=== PATIENT | male | born 1960 | race Caucasian/White ===

== ENCOUNTER 2021-03-02 08:42 | Outpatient (CLI) | payer OTHER, SELFPAY | END 2021-03-02 08:43 | disposition home or self-care (01) | LOC: ANHAUDIO 08:43 | PROVIDERS: PCP Internal Medicine; Visit Provider Otolaryngology | DX: H65.02 Acute serous otitis media, left ear (principal); H90.71 Mixed conductive and sensorineural hearing loss, unilateral, right ear, with unrestricted hearing on the contralateral side | CPT/HCPCS: 92557; 92567 ==

== ENCOUNTER 2023-04-24 10:26 | Emergency (ER) | payer OTHER, SELFPAY ==
[2023-04-24 10:45] VITALS: BP 132/82; PULSE 70; RESP 16; TEMP 36.6; O2SAT 96
--- NOTE | 2023-04-24 11:19 | ED.WOUNDLAC ---
HPI - Wound/Laceration General Chief Complaint: Wound/Laceration Stated Complaint: Left Thumb Laceration Time Seen by Provider: 04/24/23 11:10 Source: patient and RN notes reviewed Mode of arrival: ambulatory Limitations: no limitations History of Present Illness HPI narrative: Patient presents today complaining of a laceration to his left thumb that was sustained 2 hours prior to arrival at home with a kitchen knife. He dropped his hand in tape to try to get it to stop bleeding. Currently rates his pain 2/10. He is not up-to-date on his tetanus vaccine. Related Data Home Medications Medication Instructions Recorded Confirmed L.acidoph, paracasei,B. lactis 10 cell PO 09/18/20 04/21/21 billion cell capsule (Digestive Advantage Advanced Probiotic) amitriptyline 10 mg tablet 10 mg PO QHS 09/18/20 04/24/23 cetirizine 10 mg capsule (Zyrtec) 10 mg PO DAILY 09/18/20 04/24/23 clonazepam 1 mg tablet 0.5 mg PO BID 09/18/20 04/24/23 lisinopril 20 mg tablet 20 mg PO DAILY 09/18/20 04/24/23 metoprolol succinate 50 mg 50 mg PO DAILY 09/18/20 04/24/23 tablet,extended release 24 hr (Toprol XL) mirtazapine 15 mg tablet (Remeron) 15 mg PO DAILY 09/18/20 04/24/23 pantoprazole 40 mg tablet,delayed 40 mg PO QACBREAK 04/24/23 04/24/23 release Allergies Allergy/AdvReac Type Severity Reaction Status Date / Time Cephalosporins Allergy Unknown difficulty Verified 04/24/23 10:40 breathing ciprofloxacin Allergy Unknown body aches Verified 04/24/23 10:40 Penicillins Allergy Unknown Rash Verified 04/24/23 10:40 levofloxacin [From Levaquin] AdvReac difficulty Verified 04/24/23 10:40 breathing, swelling Review of Systems Review of Systems: CONSTITUTIONAL: Denies body aches, fever, chills, or sweats. EYES: Denies visual changes, redness, or discharge. ENT: Denies rhinorrhea, congestion, sore throat, or otalgia. CARDIOVASCULAR: Denies chest pain, palpitations, or edema. RESPIRATORY: Denies cough or dyspnea. GASTROINTESTINAL: Denies abdominal pain, nausea, vomiting, or diarrhea. GENITOURINARY: Denies dysuria or hematuria. SKIN: + thumb laceration. MUSCULOSKELETAL: Denies back pain, joint pain, or myalgia. NEUROLOGIC: Denies headache, numbness, tingling, or weakness. PSYCH: Denies depression or anxiety. [facility] Past Medical History Medical History Depression GERD (gastroesophageal reflux disease) High blood pressure Prostate cancer Surgical History Surgical History H/O bilateral inguinal hernia repair H/O eye surgery H/O hemorrhoidectomy H/O prostatectomy History of dental surgery History of Terrie fundoplication History of tonsillectomy Family History Family History Father Hypertension Leukemia Grandparent Diabetes mellitus Heart disease Cerebrovascular accident Social History Social History Years smoked: 10 Smoking status: Never smoker Alcohol intake: current Alcohol use details: socially Living arrangements: alone Occupation/Education: retired 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 Please see nursing chart for further information. There is no relevant family history pertinent to the presenting complaint Exam Narrative: GENERAL: Well-appearing, well-nourished, and in no acute distress. HEAD: Normocephalic, atraumatic. EYES: EOMI. No redness or drainage. Conjunctivae normal. ENT: Mucous membranes pink and moist. NECK: Normal AROM. CHEST: No respiratory distress. EXTREMITIES: Left thumb: 2 cm linear laceration to the dorsum of the interphalangeal joint. Moderate a
[2023-04-24] MEDS: TETANUS,DIPHTHERIA,AC PERTUSSIS ADULT (0.5 ML) BOOSTRIX IM (11:29)
[2023-04-24] MEDS: LIDOCAINE HCL 1% LOCAL INJ 2 ML AMPUL 8 ML INFILTRATE (11:30)
== END 2023-04-24 12:08 | disposition home or self-care (01) ==
PROVIDERS: Emergency Provider Nurse Practitioner; PCP Internal Medicine
DX: S61.012A Laceration without foreign body of left thumb without damage to nail, initial encounter (principal); W26.0XXA Contact with knife, initial encounter; Z23 Encounter for immunization; K21.9 Gastro-esophageal reflux disease without esophagitis; I10 Essential (primary) hypertension; Z85.46 Personal history of malignant neoplasm of prostate; Z90.79 Acquired absence of other genital organ(s); F32.A Depression, unspecified
CPT/HCPCS: 12001; 90471; 90715; 99212; G0463

== ENCOUNTER 2024-08-08 10:50 | Outpatient (CLI) | payer MEDICARE, SELFPAY ==
--- NOTE | ~2024-08-08 | MR_ITS ---
MRI of the right shoulder Technique: Axial proton-density fat-sat images, coronal proton density fat-sat and T2 fat-sat images, and sagittal T1-weighted and T2 fat-sat images were acquired. Clinical History: Pain Findings: There is moderate AC joint degenerative change, bony productive change of the distal clavic le, and small subacromial spur. Coracoclavicular, coracoacromial, and coracohumeral ligaments are int act. There is severe supraspinatus and infraspinatus tendinosis, without partial or full-thickness tear. S ubscapularis tendon is intact with moderate to advanced tendinosis. Tendon of long biceps is intact. No definite labral tear is seen. Inferior glenohumeral ligament is intact. There is mild degenerative change of the glenohumeral joint . There is fluid distention of the subacromial/subdeltoid bursa. No muscle atrophy or edema evident. Impression: Extensive rotator cuff tendinosis without partial or full thickness tear. Moderate AC joint degenerative change. Mild glenohumeral joint degenerative change. Subacromial/subdeltoid bursitis. Reviewed, dictated and finalized at location . Impression: Extensive rotator cuff tendinosis without partial or full thickness tear. Moderate AC joint degenerative change. Mild glenohumeral joint degenerative komal nge. Subacromial/subdeltoid bursitis.
== END 2024-08-08 10:51 | disposition home or self-care (01) ==
LOC: MICIMG 10:50
PROVIDERS: PCP Internal Medicine; Visit Provider Physician Assistant Surgical
DX: M75.121 Complete rotator cuff tear or rupture of right shoulder, not specified as traumatic (principal); M19.011 Primary osteoarthritis, right shoulder; M75.51 Bursitis of right shoulder
CPT/HCPCS: 73221

== ENCOUNTER 2024-09-26 10:00 | Outpatient (RCR) | payer MEDICARE, SELFPAY ==
--- NOTE | 2024-08-17 16:06 | OPREHPOC ---
Outpatient Therapy Plan of Care This is a Multidisciplinary Plan of Care that may contain components documented by all disciplines (PT, OT, and ST.) PT Problem 1 PT Problem #1 Knowledge Deficit PT Goal 1 Goal / Goal Update 1* independent with HEP 2* correct posture and body mechanics demonstrated during PT session and with exercises Target Visit 8 PT Problem 2 PT Problem #2 Pain PT Goal 1 Goal / Goal Update * pt report pain rating of 1/10 at worst PT Problem 3 PT Problem #3 Impaired Flexibility PT Goal 1 Goal / Goal Update increase R shoulder flexibility to improve reaching and use of R arm 1* active flexion 150' 2* active abduction 150' Target Visit 8 PT Problem 4 PT Problem #4 Impaired Strength PT Goal 1 Goal / Goal Update improve scapular strength to 4+/5, to improve positioning of GH joint Target Visit 8
--- NOTE | 2024-08-17 16:06 | PTOPEVAL1 ---
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 had cortisone injection 08-15-24: shoulder feels little better, but he has not been using his arm and not doing much; have been trying to keep his shoulders back and have better position of his shoulder; Reported Pain Level Pain Score 0: Self Report Additional Pain Score Comments pain range in the past week 0-3/10; over posterior, top and anterior GH joint have been resting and not using his arm lately, not doing all the fitness exercises. increase pain: weight exercises decrease pain: resting, ice, over the counter meds sleeping is OK, not disrupted due to shoulder pain Assessment PT Clinical Summary Bryec has the diagnosis of incomplete R rotator cuff tear. He reports chronic issues with R shoulder pain, neck and back pain. His MRI was positive for changes as above in subjective section. He is retired and active, doing regular fitness exercises. Self assessment with Quick DASH rating of 11% limitation in activity level. With the evaluation: poor standing posture of rounded/forward neck and shoulders; decreased R shoulder flexion and abduction ranges of motion; pain increase at end ranges of shoulder flexion, abduction and IR motions; weak thoracic-scapular musculature. Skilled PT services are indicated for modalities to decrease pain, therapeutic exercises to increase strength and flexibility of R shoulder, with education for posture, body mechanics and HEP . Plan of Care Interventions Electrical Stimulation,Hot Pack/Cold Pack,Manual Therapy,Neuro Re-education,Patient/Caregiver Education,Therapeutic Activities,Therapeutic Exercise,Ultrasound,Other Other Interventions taping PT Services Indicated Yes Treatment Frequency and 1-2x/wk for 8 visits Duration These treatments will address the objective and functional deficits as defined above. The patient will be advanced safely and appropriately in order for the patient to progress towards his/her prior level of function. Additional exercises will be introduced and as well as a comprehensive home exercise program upon discharge, if needed, ?to ensure carryover of functional gains achieved in the clinic. This treatment plan has been reviewed and agreement upon by the patient.
--- NOTE | 2024-09-26 10:35 | OPREHPOC ---
Outpatient Therapy Plan of Care This is a Multidisciplinary Plan of Care that may contain components documented by all disciplines (PT, OT, and ST.) PT Problem 1 PT Problem #1 Knowledge Deficit PT Goal 1 Goal / Goal Update 1* independent with HEP 2* correct posture and body mechanics demonstrated during PT session and with exercises 25 d/c goals met Target Visit 8 Progress Met PT Problem 2 PT Problem #2 Pain PT Goal 1 Goal / Goal Update * pt report pain rating of 1/10 at worst 09-26-25 d/c goal met Target Visit 8 Progress Met PT Problem 3 PT Problem #3 Impaired Flexibility PT Goal 1 Goal / Goal Update increase R shoulder flexibility to improve reaching and use of R arm 1* active flexion 150' 2* active abduction 150' 25 d/c goals met Target Visit 8 Progress Met PT Problem 4 PT Problem #4 Impaired Strength PT Goal 1 Goal / Goal Update improve scapular strength to 4+/5, to improve positioning of GH joint 25 d/c goal met Target Visit 8
--- NOTE | 2024-09-26 10:35 | PTOPDC ---
Assessment and note entered by Elle Ricketts, PT Discharge Report Assessment Status Discharge ICD-10 Condition Codes (PT) Pain in right shoulder M25.511 Other ICD-10 Condition Codes ( incomplete tear of R rotator cuff M 75.111 PT) Onset Dec 2023 Subjective Information saw today, he was pleased and released me; been doing the exercises with the bands at home; have not returned to doing all of my usual fitness exercises with the weights; had pain in shoulder with getting on hands and knees and scrubbing the floor; Reported Pain Level Pain Score 0: Self Report Pain Score 0: Self Report Additional Pain Score Comments pain range in the past week 0-1/10; sharp, quick pain, eases fast increase pain: overhead and out to the side motions; quick motions decrease pain; rest, ice Assessment PT Clinical Summary Bryce has received a total of 8 PT sessions. Compared to the initial evaluation, he has improved in all areas. Today presents with: pain rating 0-1/10; self assessment with Quick DASH rating of 2% limitation in activity level; active R shoulder flexion and abduction to 150'; IR- reach behind back, fingers to scapula and ER- reaching behind head, fingers to cervical spine; no pain with active R shoulder motions; 4+/5 strength of R shoulder; has returned to all usual home tasks, but not doing all the fitness exercises and weight exercises. Education completed for HEP and activity progression with fitness exercises. The goals were achieved. Discharge PT. He is to continue with his HEP and monitor pain with activity progression. Plan of Care PT Services Indicated No
== END 2024-09-26 11:55 | disposition home or self-care (01) ==
LOC: ANHPT 10:00
PROVIDERS: PCP Internal Medicine; Visit Provider Orthopaedic Surgery
DX: M75.111 Incomplete rotator cuff tear or rupture of right shoulder, not specified as traumatic (principal)
CPT/HCPCS: 97110; 97112; 97161; 97530

== ENCOUNTER 2024-10-20 19:28 | Emergency (ER) | payer MEDICARE, SELFPAY ==
--- OUTSIDE RECORDS SUMMARY | 2008-08-08 04:00 | XMS_ITS | Continuity of Care Document ---
Author Organization [facility] Address [address] [place] [address] Phone Care Team Providers Care Coater Smoking Pipe Name Role Phone Bhavana OD OD, Sourav Unavailable Unavailabl e Procedures Procedure Date Office/outpatient Visit, Est Visual Field Examination(s) Optic Nerve Topography Optic Nerve Topography Post-op Follow-up Visit Post-op Follow-up Visit Post-op Follow-up Visit Post-op Follow-up Visit Post-op Follow-up Visit Post-op Follow-up Visit Post-op Follow-up Visit Autonomous -Lasik Comanaged No Charge Refractive Evaluation 007 Visual Field Examination(s) [employer] Sales Tax Advance Directives Directive Yes / No Effective Date File Name No Information Encounters Encounter Description Practice Location Reason(s) For Visit Diagnoses Date Provider Providers Copied on Encounter Office/outpat ient Visit, Est [facility], [address], [place], [place], [address], [place] tel:[phone] [facility] No Information Bhavana OD Sourav. [address] [facility], [place], [address], [place]. tel:[phone] Referring Provider: Sourav Bateman OD P, [address] [facility], [place], [address] . tel:[phone] [facility], [address], [place], [place], [address], [place] tel:[phone] [facility] No Information Savagey OD Sourav. [address] [place], [place], [address], [place]. tel:[phone] Referring Provider: Sourav Bateman OD P, [address] [facility], [place], [address] . tel:[phone] [facility], [address], [place], [place], [address], [place] tel:[phone] [facility] No Information Byrony OD Sourav. [address] [place], [place], [address], [place]. tel:[phone] Referring Provider: Sourav Bateman OD P, [address] [facility], [place], [address] . tel:[phone] [facility], [address], [place], [place], [address], [place] tel:[phone] [facility] No Information Haveneny OD Sourav. [address] [place], [place], [address], [place]. tel:[phone] Referring Provider: Sourav Bateman OD P, [address] [facility], [place], [address] . tel:[phone] [facility], [address], [place], [place], [address], [place] tel:[phone] [facility] No Information Mulqueeny OD Sourav. [address] [place], [place], [address], [place]. tel:[phone] Referring Provider: Sourav Bateman OD P, [address] [place], [address] . tel:[phone] [facility], [address], [place], [place], [address], [place] tel:[phone] [facility] No Information Mulqueeny OD Sourav. [address] [place], [place], [address], [place]. tel:[phone] Referring Provider: Sourav Bateman OD P, [address] [place], [address] . tel:[phone] [facility], [address] [place] [address] [address], [place], [place], [address], [place] tel:[phone] [facility] No Information Mulqueeny OD Sourav. [address] [place], [place], [address], [place]. tel:[phone] [facility], [address], [place], [place], [address], [place] tel:[phone] [facility] No Information Haveneny OD Sourav. [address] [place], [place], [address], [place]. tel:[phone] [facility], [address], [place], [place], [address], [place] tel:[phone] [facility] No Information [facility] . [address] [place], [place], [address], [place]. tel:[phone] Referring Provider: Sourav Bateman OD P, [address] [place], [address] . tel:[phone] [facility], [address], [place], [place], [address], [place] tel:[phone] [facility] No Information Bhavana VALLE Sourav. [address] [place], [place], [address], [place]. tel:[phone] Referring Provider: Sourav Bateman OD P, [address] [place], [address] . tel:[phone] Family History Family Member Type Diagnosis Age At Onset No Information Payers Payer name Insurance type Covered democrat ID Kristen acevedogasper(s) [place] FEP BL [id number] Social History Type Description Quantity Date Captured Comments Sex Male Smoking Status No Information Chief Complaint And Reason For Visit No Information Reason For Referral Reason For Referral No Information History Of Present Illness Encounter Date Complaint History Of Prese nt Illness No Information Functional Status Date Functional Assessmen t No Information Instructions Date Instruction Additional Infor mation No Information Assessments Type Assessment Date No Information Patient Care Teams Name Effective Dates (start - stop) Status Members No Information
--- OUTSIDE RECORDS SUMMARY | 2008-08-08 04:00 | XMS_ITS | Continuity of Care Document ---
Author Organization [facility] Address [address] [place] [address] Phone Care Team Providers Care Die Sinker Name Role Phone Bhavana OD OD, Sourav [...] Copied on Encounter Office/outpat ient Visit, Est [facility], [address], [place], [place], [address], [place] tel:[phone] [facility] No Information Bhavana OD Sourav. [address] [facility], [place], [address], [place]. tel:[phone] Referring Provider: Sourav Bateman OD P, [address] [facility], [place], [address] . tel:[phone] [facility], [address], [place], [place], [address], [place] tel:[phone] [facility] No Information Savagey OD Sourav. [address] [place], [place], [address], [place]. tel:[phone] Referring Provider: Sourav Bateman OD P, [address] [facility], [place], [address] . tel:[phone] [facility], [address], [place], [place], [address], [place] tel:[phone] [facility] No Information Byrony OD Sourav. [address] [place], [place], [address], [place]. tel:[phone] Referring Provider: Sourav Bateman OD P, [address] [facility], [place], [address] . tel:[phone] [facility], [address], [place], [place], [address], [place] tel:[phone] [facility] No Information Haveneny OD Sourav. [address] [place], [place], [address], [place]. tel:[phone] Referring Provider: Sourav Bateman OD P, [address] [facility], [place], [address] . tel:[phone] [facility], [address], [place], [place], [address], [place] tel:[phone] [facility] No Information Mulqueeny OD Sourav. [address] [place], [place], [address], [place]. tel:[phone] Referring Provider: Sourav Bateman OD P, [address] [place], [address] . tel:[phone] [facility], [address], [place], [place], [address], [place] tel:[phone] [facility] No Information Mulqueeny OD Sourav. [address] [place], [place], [address], [place]. tel:[phone] Referring Provider: Sourav Bateman OD P, [address] [place], [address] . tel:[phone] [facility], [address] [place] [address] [address], [place], [place], [address], [place] tel:[phone] [facility] No Information Mulqueeny OD Sourav. [address] [place], [place], [address], [place]. tel:[phone] [facility], [address], [place], [place], [address], [place] tel:[phone] [facility] No Information Haveneny OD Sourav. [address] [place], [place], [address], [place]. tel:[phone] [facility], [address], [place], [place], [address], [place] tel:[phone] [facility] No Information [facility] . [address] [place], [place], [address], [place]. tel:[phone] Referring Provider: Sourav Bateman OD P, [address] [place], [address] . tel:[phone] [facility], [address], [place], [place], [address], [place] tel:[phone] [facility] No Information Bhavana VALLE Sourav. [address] [place], [place], [address], [place]. tel:[phone] Referring Provider: Sourav Bateman OD P, [address] [place], [address] . tel:[phone] Family History Family Member Type Diagnosis Age At Onset No Information Payers Payer name Insurance type Covered constitution party ID Kristen acevedogasper(s) [place] FEP BL [id number] Social History Type Description Quantity Date Captured [...]
--- OUTSIDE RECORDS SUMMARY | 2022-04-12 08:03 | XMS_ITS | Continuity of Care Document ---
Author Organization [facility] Address [address] [place] [address] Phone Care Team Providers Care Sql Ssrs Ssis Developer Name Role Phone Hayley Key Unavailable Unavailab le Allergies, Adverse Reactions, Alerts Substance Reaction Status Criticality methylprednisolone Active No Inform ation CIPROFLOXACIN HCL Active No Informa tion ciprofloxacin Active No Information levofloxacin Active No Information Cephalosporins Active No Informatio n PENICILLIN Active No Information Medications Medication Instructions Dosage Effective Dates (start - stop) Status Comments amitriptyline 10 mg tablet TAKE 1 TABLET BY MOUTH EVERYDAY AT BEDTIME - Active Dr. Migue Bianchi famotidine 20 mg tablet take 1 tablet by oral route 2 times every day 20 MG - Active Align 4 mg capsule take 1 capsule by oral route every day - Active mirtazapine 15 mg tablet take 3 tablet by oral route every day before bedtime 45 MG - Active clonazepam 1 mg tablet take 1.5 tablet by oral route every day 1.5 MG - Active Zyrtec 10 mg tablet take 1 tablet by oral route every day 10 MG - Active Miralax 17 gram oral powder packet take 1 packet by oral route every day mixed with 8 oz. water, juice, soda, coffee or tea - Active lisinopril 20 mg tablet take 1 tablet by oral route every day 20 MG - Active metoprolol tartrate 50 mg tablet take 1 tablet by oral route every day with meals 50 MG - Active Procedures Procedure Date TELEPHONE E&M SERVICE BY A PHYSICIAN;5-1 0 MINUTES OF MEDICAL DISCUSSION BODY MASS INDEX DOCD OFFICE [id number] BODY MASS INDEX DOCD SYST BP >= 140 MM HG6 IT DIAST BP >= 90 MM HG OFFICE [id number] BODY MASS INDEX DOCD SYST BP LT 130 MM HG DIAST BP < 80 MM HG Colonoscopy, Flex, With Band Ligation Ma OFFICE [id number] BODY MASS INDEX DOCD SYST BP LT 130 MM HG DIAST BP < 80 MM HG [id number] MED BODY MASS INDEX DOCD SYST BP LT 130 MM HG DIAST BP < 80 MM HG Advance Directives Directive Yes / No Effective Date File Name No Information Encounters Encounter Description Practice Location Reason(s) For Visit Diagnoses Date Provider Providers Copied on Encounter [facility], [address], [place], [place], [address] , tel: [phone] [facility] No Information 0 3 Gerard Hardy. [address] [place] [address], [id number] , . tel: [phone] TELEPHONE E&M SERVICE BY A PHYSICIAN;5- 10 MINUTES OF MEDICAL DISCUSSION [facility], [address], [place], [place], [address] , tel: [phone] [facility] Irritable bowel syndrome without diarrheaHeartburn 2 Gerard Hardy. [address] [place] [address], [address] , . tel: [phone] Referring Provider: Nicolas Gayle, [address], [place], [address]. tel:[phone] OFFICE VLAZD-XLL-PZ PANDED [facility], [address], [place], [place], [address] , tel: [phone] [facility] Upper GI issue (chief complaint) Heartburn 1 Arias Camarena. [address] [facility], [place], [place], [address] , [place]. tel: [phone] Referring Provider: Houston Shaw [address], [place], [address]. tel:[phone] OFFICE IJEIA-ILZ-FF [facility], [address], [place], [place], [address] , [place] tel: [phone] [facility] Bowel problems (chief complaint) Irritable bowel syndrome without diarrheaRectal bleedingFH: colon cancer 1 Arias [address]igue. [address] [place], [place], [address] , [place]. tel: [phone] Referring Provider: Houston Shaw [address], [place], [address]. tel:[phone] [facility], [address], [place], [place], [address] , [place] tel: [phone] [facility] No Information 1 Arias Migue. [address] [place] [address], [id number] , [place]. tel: [phone] Referring Provider: Houston Shaw [address], [place], [address]. tel:[phone] OFFICE [id number]-GP [facility], [address], [place], [place], [address] , [place] tel: [phone] [facility] GI problems (chief complaint) Irritable bowel syndrome without diarrheaFH: colon cancerAnal painRectal bleeding 1 Arias Migue. [address] [place] [address], [id number] , [place]. tel: [phone] Referring Provider: Houston Shaw [address], [place], [address]. tel:[phone] CONSULT-OFFI CE-COMP MED [facility], [address], [place], [place], [address] , [place] tel: [phone] [facility] GI problems (chief complaint) Irritable bowel syndrome without diarrheaSmall intestinal bacterial overgrowth (SIBO)FH: colon cancer 1 Arias Camarena. [address] [facility], [address], [place], [place], [address] , [place]. tel: [phone] Referring Provider: Nicolas Gayle, [address], [place], [address]. tel:[phone] Family History Family Member Type Diagnosis Age At Onset Problem No family history of Cancer, esophageal Problem No family history of Cancer, colon Problem No family history of Ulcerat leatha colitis Problem No family history of Cancer, gastric Problem No family history of Crohn's disease Payers Payer name Insurance type Covered alliance party ID Kristen haines(s) [facility] BENEFIT PLAN CI [id number] Social History Type Description Quantity Date Captured Comments Alcohol Use Details Unknown Caffeine Use Details Unknown Tobacco Use Status No Information Smoking Status No Information Sex Male Chief Complaint And Reason For Visit No Information Reason For Referral Reason For Referral No Information History Of Present Illness Encounter Date Complaint History Of Prese nt Illness Upper GI issue History of Nisse n Fundoplication. Resent EGD in chart (small HH)Had symptoms of increased heartburn recently.Lasted quite a whiletook some TUMS which helpedHad continued epigastric and upper abdominal painHad Nausea no vomiting.Bowel OKCalled here and was started on Pepcid HC (improved significantly) Bowel problems Has 1- 2 bowel m ovements a dayTakes one dose of Miralax dailyTakes BeanoStays away from Gassy food.No bleeding. No anal painRecent Colonoscopy normalHad ligation of hemorrhoids times 2. GI problems Started on Fiber . Stopped MiraLax.Got constipated, Went back to MiraLax. Now bowels back to moving.Went off FODMAP and was about the same. 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 Has sourness all the time. Hurts to have bowel movementSaw blood once bright blood. Small amount.Has history of anal fissure.Due for colonoscopy. GI problems Had GERD for a l rock timeLead to Fundoplication Had problems with gas and bloating. Had Lactulose breath test and was diagnosed with SIB)Was treated with Xifaxin and other antibiotics which didn't help.Saw Artist Model and placed on FODMAP diet.(losing weight) Functional Status Date Functional Assessmen t No Information Instructions Date Instruction Additional Infor mation Continue with pepcid daily and avoiding foods that increase symptoms Related to Heartburn Continue with daily medicationFollow up in the office in one year or sooner for problems Related to Irritable bowel syndrome without diarrhea Famotidine 20 mg in AM and before Bedtime.Call if problems. Related to Heartburn Handout Resolved after hemorrhoid bandin g Related to Rectal bleeding Doing well on presen t treatment including AmitriptylineFollow up one year.Call if problems Related to Irritable bowel syndrome without diarrhea Recent Colonoscopy negative Rela chaya to FH: colon cancer Handout See aboveHemorrhoid banding at time of colonoscopy if indicated. Related to Rectal bleeding See aboveExam under anesthesia to check for perianal problems (hemorrhoids, fissures, proctitis) Related to FH: colon cancer See above Related to Anal pain Will get colonoscopy (5 year follow up)Stay away from Milk products, and gassy foodsContinue Amitriptyline Related to Irritable bowel syndrome without diarrhea Handout Due later this year (history of polyps and family history)Will contact in August to set up. Related to FH: colon cancer Has been treated wit h ABX on 2 occasionsNo plans to retreat Related to Small intestinal bacterial overgrowth (SIBO) OK to stop or loosen FODMAP diet.Stay away from Gassy foods: Milk, red beans, Certain Vegetables (list given)Start Amitriptyline 10 mg at bedtimeTake Hyoscyamine .125 mg under tongue as needed every 6 hours for bloatingStart Probiotic Related to Irritable bowel syndrome without diarrhea Handout Assessments Type Assessment Date No Information Patient Care Teams Name Effective Dates (start - stop) Status Members No Information
--- OUTSIDE RECORDS SUMMARY | 2022-04-12 08:03 | XMS_ITS | Continuity of Care Document ---
Author Organization [facility] Address [address] [place] [address] Phone Care Team Providers Care Dock Operations Supervisor Name Role Phone Hayley Key Unavailable Unavailab [...] MEDICAL DISCUSSION BODY MASS INDEX DOCD OFFICE [id number] BODY MASS INDEX DOCD SYST BP >= 140 MM HG6 IT DIAST BP >= 90 MM HG OFFICE [id number] BODY MASS INDEX DOCD SYST BP LT 130 MM HG DIAST BP < 80 MM HG Colonoscopy, Flex, With Band Ligation Ma OFFICE [id number] BODY MASS INDEX DOCD SYST BP LT 130 MM HG DIAST BP < 80 MM HG [id number] MED BODY MASS INDEX DOCD SYST BP LT 130 MM HG DIAST BP < 80 MM HG Advance Directives Directive Yes / No Effective Date File Name No Information Encounters Encounter Description Practice Location Reason(s) For Visit Diagnoses Date Provider Providers Copied on Encounter [facility], [address], [place], [place], [address] , tel: [phone] [facility] No Information 0 3 Gerard Hardy. [address] [place] [address], [id number] , . tel: [phone] TELEPHONE E&M SERVICE BY A PHYSICIAN;5- 10 MINUTES OF MEDICAL DISCUSSION [facility], [address], [place], [place], [address] , tel: [phone] [facility] Irritable bowel syndrome without diarrheaHeartburn 2 Gerard Hardy. [address] [place] [address], [id number] , . tel: [phone] Referring Provider: Nicolas Gayle, [address], [place], [address]. tel:[phone] OFFICE [id number]-LKD-WD PANDED [facility], [address], [place], [place], [address] , tel: [phone] [facility] Upper GI issue (chief complaint) Heartburn 1 Arias Camarena. [address] [facility], [place], [place], [address] , [place]. tel: [phone] Referring Provider: Houston Shaw [address], [place], [address]. tel:[phone] OFFICE SENIZ-HTG-RJ [facility], [address], [place], [place], [address] , [place] tel: [phone] [facility] Bowel problems (chief complaint) Irritable bowel syndrome without diarrheaRectal bleedingFH: colon cancer 1 Arias Migue. [address] [place], [place], [address] , [place]. tel: [phone] Referring Provider: Houston Shaw [address], [place], [address]. tel:[phone] [facility], [address], [place], [place], [address] , [place] tel: [phone] [facility] [place] No Information 1 Arias Migue. [address] [place] [address], [id number] , [place]. tel: [phone] Referring Provider: Houston Shaw [address], [place], [address]. tel:[phone] OFFICE [id number]-PYH-SL [facility], [address], [place], [place], [address] , [place] tel: [phone] [facility] GI problems (chief complaint) Irritable bowel syndrome without diarrheaFH: colon cancerAnal painRectal bleeding 1 Arias Migue. [address] [place] [address], [id number] , [place]. tel: [phone] Referring Provider: Houston Shaw [address], [place], [address]. tel:[phone] CONSULT-OFFI CE-COMP MED [facility] [address] [facility], [address], [place], [place], [address] , [place] tel: [phone] [facility] GI problems (chief complaint) Irritable bowel syndrome without diarrheaSmall intestinal bacterial overgrowth (SIBO)FH: colon cancer 1 Arias Camarena. [address] [facility], [place], [place], [address] , [place]. tel: [phone] Referring Provider: Nicolas Gayle, [address], [place], [address]. tel:[phone] Family History Family Member Type Diagnosis Age At Onset Problem No family history of Crohn's disease Problem No family history of Cancer, gastric Problem No family history of Ulcerat leatha colitis Problem No family history of Cancer, colon Problem No family history of Cancer, esophageal Payers Payer name Insurance type Covered republican ID Kristen haines(s) [facility] HEALTH BENEFIT PLAN CI [id number] Social History Type Description Quantity Date Captured [...] the same. 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 Related to Heartburn Handout Resolved after hemorrhoid bandin g Related to Rectal bleeding Recent Colonoscopy negative Rela chaya to FH: colon cancer Doing well on presen t treatment including AmitriptylineFollow up one year.Call if problems Related to Irritable bowel syndrome without diarrhea Handout See aboveHemorrhoid banding at time of colonoscopy if indicated. Related to Rectal bleeding See aboveExam under anesthesia to check for perianal problems (hemorrhoids, fissures, proctitis) Related to FH: colon cancer See above Related to Anal pain Will get colonoscopy (5 year follow up)Stay away from Milk products, and gassy foodsContinue Amitriptyline Related to Irritable bowel syndrome without diarrhea Handout Has been treated wit h ABX on 2 occasionsNo plans to retreat Related to Small intestinal bacterial overgrowth (SIBO) Due later this year (history of polyps and family history)Will contact in August to set up. Related to FH: colon cancer OK to stop or loosen FODMAP diet.Stay [...]
--- NOTE | ~2024-10-20 | XR_ITS ---
EXAMINATION: XR chest 2V, 10/20/2024 20:55 CDT HISTORY: CHEST PAIN/ A-FIB COMPARISON: No comparisons available. Technique: 2 views obtained. Findings: The lungs are clear, no effusion. No pneumothorax. Heart is normal size. Mediastinal and hilar contours are within normal limits. Bony thorax no acute abnormality. Impression: No acute cardiopulmonary abnormality. Reviewed, dictated and finalized at location A. Impression: No acute cardiopulmonary abnormality.
--- NOTE | 2024-10-20 19:31 | ECG_ITS ---
Test Date: 2024-10-20 19:41:39 Measurements Intervals [place] Rate: 93 P: 22 NM: 215 QRS: 26 QRSD: 104 T: 9 QT: 340 QTc: 425 Interpretive Statements SINUS RHYTHM WITH FIRST DEGREE AV BLOCK ABNORMAL ECG No previous ECG available for comparison Electronically Signed On 10-21-2024 09:40:07 CDT by Heath Chau M.D.
--- OUTSIDE RECORDS SUMMARY | 2024-10-20 19:33 | XMS_ITS ---
Author Organization [facility] al Address [address] [place] [address] Care Team Providers Care Transfer Knitter Name Role Phone Nicolas Gayle MD Primary Care Provider [phone] Hayley Araya NP Unavailable [phone] Taj Yeung MD Unavailable [phone] Active Problems Problem Noted Date Diagnosed Date Paroxysmal atrial fibrillation 10/04/2024 Abdominal pain 05/11/2024 Bloating 05/11/2024 Assessment & Plan (09/21/2024 8:15 AM CDT): Bloating improved after starting Linzess, IBS-C likely contibuting to symptoms. He's recently trialed SIBO therapy with rifaximin without improvement (prior 2018 with some improvement but not lasting). Would continue for now at 145 mcg and can titrate as needed to goal. May have some degree of aerophagia provoked by fundoplication. Could consider diaphragmatic breathing exercises/education of symptoms are more bothersome in the future. Assessment & Plan (06/12/2024 8:32 AM CDT): Continuing to work with GI. Recent labs reviewed. Recent chest x-ray reviewed. He will discuss with GI again on his upcoming appointment Encounter for colorectal cancer screening 2024 Change in bowel habits 05/11/2024 Assessment & Plan (09/21/2024 8:15 AM CDT): Continue Linzess 145 mcg, bowel habits currently at target. Conductive hearing loss of r ight ear with unrestricted hearing of left ear 04/21/2024 Conductive hearing loss, bilateral 03/14/2024 Mixed hyperlipidemia 12/13/2023 Assessment & Plan (12/13/2023 8:52 AM SHEET ROCK HANGER): Started medication in June, needs follow up to assess result, check lipid Pain of left hand 06/08/2023 Assessment & Plan (06/08/2023 8:50 AM CDT): Check xray, likely oa Dysfunction of both eustachian tubes 03/26/2021 Assessment & Plan (03/26/2021 1:46 PM SHEET ROCK HANGER): Flonase BID (use, s/e, technique reviewed) Thrush of mouth and esophagus 03/26/2021 Assessment & Plan (03/26/2021 1:53 PM SHEET ROCK HANGER): Fluconazole daily x 7d Warm salt water gargles Recurrent sinusitis 09/22/2020 HTN (hypertension) 12/18/2018 Assessment & Plan (06/12/2024 8:31 AM CDT): BP at target. Continue medication for target directed therapy Assessment & Plan (12/13/2023 8:50 AM SHEET ROCK HANGER): Bp at target, continue medication for target directed therapy Assessment & Plan (06/08/2023 8:50 AM CDT): Bp at target, continue medication for target directed therapy Assessment & Plan (03/07/2023 12:47 PM SHEET ROCK HANGER): Reassurance Quit home monitoring Continue current meds Assessment & Plan (03/02/2021 2:48 PM SHEET ROCK HANGER): BP today is normal. Check CMP. Assessment & Plan (12/19/2018 11:41 AM SHEET ROCK HANGER): Cont lisinopril and metoprolol XL. Blood pressure stable. Assessment & Plan (12/18/2018 10:26 PM SHEET ROCK HANGER): Cont lisinopril and metoprolol XL Anxiety and depression 12/18/2018 Assessment & Plan (06/12/2024 8:31 AM CDT): Per psychiatry. Medication recently increased. Assessment & Plan (12/13/2023 8:50 AM SHEET ROCK HANGER): To change psychiatrist soon Assessment & Plan (06/08/2023 8:50 AM CDT): Stable doing well Assessment & Plan (12/19/2018 11:41 AM SHEET ROCK HANGER): Cont clonazepam and mirtazapine. Mood currently stable. Assessment & Plan (12/18/2018 10:27 PM SHEET ROCK HANGER): Cont clonazepam and mirtazapine Gastroesophageal reflux disease with esophagitis 11/08/2018 Overview (11/08/2018): S/p Terrie July 2016 EGD 03/2017 Evidence of an intact Terrie fundoplication. Otherwise normal endoscopy 04/2018 24hr PH testing demonstrated no acid exposure Assessment & Plan (09/21/2024 8:13 AM CDT): S/p Terrie July 2016. Recent EGD showing intact wrap with no esophagitis. Prior 04/2018 24hr PH testing demonstrated no acid exposure. We discussed it was unlikely that his mild intermittent symptoms were related to severe reflux. Can trial PRN antacid (gaviscon) for breakthrough symptoms. Provided re-assurance that there does not appear to be any significant alteration to his wrap and that the complications he fears are very unlikely and not supported by any evidence in our evaluations. Assessment & Plan (12/13/2023 8:50 AM SHEET ROCK HANGER): stable Assessment & Plan (06/08/2023 8:49 AM CDT): stable Assessment & Plan (12/19/2018 11:40 AM SHEET ROCK HANGER): - patient with recurrent GERD symptoms and abdominal distention. Currently protecting secretions. CT with finding of small hiatal hernia, no acute findings. -EGD completed, no acute findings, plan to follow up for further work up outpatient. -defer PPI for now, will GI f/u Assessment & Plan (12/18/2018 10:35 PM SHEET ROCK HANGER): - patient with recurrent GERD symptoms and abdominal distention. Currently protecting secretions. CT with finding of small hiatal hernia, changes of Terrie, and no acute findings. - GI consulted, plan for EGD in AM - consider PPI dependent on findings Chronic rhinitis 05/01/2015 Epistaxis 04/16/2015 Gastroesophageal reflux disease 12/04/2012 External hemorrhoids 03/24/2012 Anal fissure 02/03/2009 Dizziness 09/26/2008 Malignant neoplasm of prostate (CMS/HCC) 008 Cancer Staging:Pathologic stage from 11/09/2007:Stage III(T3a, N0, M0, G2) - Signed by Hayley Araya, ADDICTIONS THERAPIST on 09/28/2017 Assessment & Plan (12/13/2023 8:50 AM SHEET ROCK HANGER): [address] Assessment & Plan (06/08/2023 8:49 AM CDT): Currently doing well, follows allen Yeung Current Treatment and Therapy Plans No current plan information found. Past Treatment and Therapy Plans No past plan information found. Lifetime Dose Tracking * Chemical Lifetime Dose Automatic Entry Manual Entr y Fluoro Time 4 minutes 4 minutes 0 minutes DLP 1,439 mGycm 1,439 mGycm 0 mGycm Resolved Problems Problem Noted Date Diagnosed Date Resolved Date Boil of trunk 03/26/2021 03/07/2023 Assessment & Plan (03/26/2021 1:49 PM SHEET ROCK HANGER): Bactrim DS BID Heat PRN
--- OUTSIDE RECORDS SUMMARY | 2024-10-20 19:33 | XMS_ITS | Encounter Summary ---
Author Organization [facility] Healthcare Address [address] [place] [address] Care Team Providers Care Cook Helper Fruit Name Role Phone Nicolas Gayle MD Primary Care Provider [phone] Hayley Araya NP Unavailable [phone] Taj Yeung MD Unavailable [phone] Encounter Details Date Type Department Care Team (Late st Contact Info) Description 10/16/2024 Telephone [facility] Medical Group Cardiology [address] [place] [phone] Foster Plasencia MD [address] [address] Social History Tobacco Use Types Packs/Day Years Used Date Smoking Tobacco: Former Cigarettes 0.5 10 0 09/01/1979 - 04/21/1989 Smokeless Tobacco: Never Comments:1989 stopped Alcohol Use Standard Drinks/Week Comments Yes 0 (1 standard drink = 0.6 oz pur e alcohol) Occasional AUDIT-C Answer Date Recorded Q1: How often do you have a drink containing alcohol? Never 05/24/2024 Q2: How many drinks containi ng alcohol do you have on a typical day when you are drinking? Patient does not drink Q3: How often do you have si x or more drinks on one occasion? Never 05/24/2024 Personal Safety Answer Date Recorded Have you ever been in or are you currently in a harmful physical or emotional relationship or is someone making you feel afraid or unsafe? 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 He statesthat occasionally he can hear his heart beating in his ears. Pt reports that he is also dealing with nasal/sinus congestion. Pt denies any pain or heart palpitations. States that he walks about 2 miles around his neighborhood without any difficulty. Pt states he has made an appt to see his pcp to discuss the congestion/sinus problems. Pt is currently taking Zyrtec and flonase for this. Pt will continue to monitor symptoms. Pt advised to call with any new or worsening symptoms. He states he thinks that his symptoms are caused from all of his sinus congestion but wanted to be sure this wasn't something else going on . * Telephone Encounter - Yi Roca - 10/19/2024 8:38 AM CDT Patient called in to speak with a nurse. He is wanting to give an update on his BP readings. At this time they are reading between 130's-140's / mid 80-90's, patient did state that the bottom number he felt was not as bad. Pulse is in the mid 60's, avg 64-69. Patient states that he feels a pulse beating in throat, heart is beating harder at times. Would like to hear back to make sure everything is okay to ease his mind. Please Advise. Thank you. Contact : [phone] * Telephone Encounter - Hayley Hurtado RN - 10/16/2024 10:49 AM CDT Spoke with pt, pt reports that he believes that he had an episode of afib last night while sleeping. Pt reports he was woken up multiple times feeling like his pulse was beating fast. Pt denied any other symptoms. Pt did not check his HR. Pt feeling fine today. BP and HR's reported below are from this morning. Pt compliant with medications. Pt advised to continue to monitor symptoms and to call with any episodes of elevated HR that do not go away or any chest pain or SOB. Pt verbalizes understanding. * Telephone Encounter - Yi Roca - 10/16/2024 9:14 AM CDT Pt states he woke up multiple times at night and could feel his pulse beating fast on his neck. BP this morning was 128/73 HR 77 and after a while he checked it again and it was 152/94 HR 68. After he took his meds at 8:30 am his BP was 133/87 HR 67 and at 9 am after eating it was 149/90 HR 67. Contact: documented in this encounter Plan of Treatment Not on file documented as of this encounter Visit Diagnoses Not on filedocumented in this encounter Care Teams Cook Helper Fruit Relationship Specialty Start Date End Date Nicolas Gayle MD PCP - General 03/22/16 Hayley Araya NP Nurse Practitioner Radiation Oncology 09/28/17 Taj Yeung MD [address] [facility] [address] [place] [address] Radiation Oncologist Radiation Oncology 09/28/17 documented as of this encounter
--- OUTSIDE RECORDS SUMMARY | 2024-10-20 19:33 | XMS_ITS | Clinical Summary ---
Author Organization [facility] Address [address] [place] [address] Care Team Providers Care Manufacturing Engineer Assembly Name Role Phone Nicolas White MD Primary Care Provider Hayley Araya NP Unavailable Taj Yeung MD Unavailable [phone] Allergies Active Allergy Reactions Criticality Noted Date Comments Cephalosporins Chest tightness High 05/15/2020 Ciprofloxacin Joint pain Low Ciprofloxacin Hcl Rash Medium 05/15/2020 Levofloxacin Muscle pain High Methylprednisolone Anxiety Low 10/16/2007 Penicillin Hives High Medications Bifidobacterium infantis (ALIGN) 4 mg capsule Take 1 capsule (4 mg total) by mouth daily Active lisinopriL (PRINIVIL,ZESTRI L) 10 mg tablet TAKE 1 TABLET BY MOUTH EVERY DAY 90 tablet [address] (PROTONIX) 40 mg EC tabletIndication s:Treatment of Non-Bleeding Gastric Disorder Take 1 tablet (40 mg total) by mouth 2 (two) times a day before breakfast and dinner 180 tablet 2 5 Active mirtazapine (REMERON) 30 mg tablet Take 1 tablet (30 mg total) by mouth nightly 90 tablet 3 5 Active linaCLOtide (LINZESS) 145 mcg capsuleIndicatio ns:Constipation Predominant Irritable Bowel Syndrome Take 1 capsule (145 mcg total) by mouth daily 90 capsule 3 5 Active metoprolol XL (TOPROL-XL) 50 mg extended release tablet TAKE 1 TABLET BY MOUTH EVERY DAY 90 tablet 3 5 Active rosuvastatin (CRESTOR) 10 mg tablet TAKE 1 TABLET BY MOUTH EVERY DAY 90 tablet 2 5 Active clonazePAM (KlonoPIN) 0.5 mg tabletIndication s:Anxiety and depression Take 0.5 mg (1 tablet) in the morning and 1 mg (2 tablets) at night. 270 tablet 1 5 Active desvenlafaxine ER (PRISTIQ) 25 mg tablet extended release 24 hr 24 hr tablet Take 1 tablet (25 mg total) by mouth daily 90 tablet 3 5 08/02/19 26 Active mirtazapine (REMERON) 15 mg tablet TAKE 1 TABLET BY MOUTH DAILY 90 tablet 5 Active rivaroxaban (XARELTO) 20 mg tabletIndication s:atrial fibrillation Take 1 tablet (20 mg total) by mouth daily 30 tablet 5 5 Active polyethylene glycol (MIRALAX) 17 gram/dose powder Take 1 packet by mouth daily 09/23/19 25 Discontin ued(Alessandro nt Reported) Active Problems Problem Noted Date Diagnosed Date [...] 12/13/2023 Assessment & Plan (12/13/2023 8:52 AM BOOKKEEPERS SUPERVISOR): Started medication in June, needs follow up to assess result, check lipid Pain of left hand 06/08/2023 Assessment & Plan (06/08/2023 8:50 AM CDT): Check xray, likely oa Dysfunction of both eustachian tubes 03/26/2021 Assessment & Plan (03/26/2021 1:46 PM BOOKKEEPERS SUPERVISOR): Flonase BID (use, s/e, technique reviewed) Thrush of mouth and esophagus 03/26/2021 Assessment & Plan (03/26/2021 1:53 PM BOOKKEEPERS SUPERVISOR): Fluconazole daily x 7d Warm salt water gargles Recurrent sinusitis 09/22/2020 HTN (hypertension) 12/18/2018 Assessment & Plan (06/12/2024 8:31 AM CDT): BP at target. Continue medication for target directed therapy Assessment & Plan (12/13/2023 8:50 AM BOOKKEEPERS SUPERVISOR): Bp at target, continue medication for target directed therapy Assessment & Plan (06/08/2023 8:50 AM CDT): Bp at target, continue medication for target directed therapy Assessment & Plan (03/07/2023 12:47 PM BOOKKEEPERS SUPERVISOR): Reassurance Quit home monitoring Continue current meds Assessment & Plan (03/02/2021 2:48 PM BOOKKEEPERS SUPERVISOR): BP today is normal. Check CMP. Assessment & Plan (12/19/2018 11:41 AM BOOKKEEPERS SUPERVISOR): Cont lisinopril and metoprolol XL. Blood pressure stable. Assessment & Plan (12/18/2018 10:26 PM BOOKKEEPERS SUPERVISOR): Cont lisinopril and metoprolol XL Anxiety and depression 12/18/2018 Assessment & Plan (06/12/2024 8:31 AM CDT): Per psychiatry. Medication recently increased. Assessment & Plan (12/13/2023 8:50 AM BOOKKEEPERS SUPERVISOR): To change psychiatrist soon Assessment & Plan (06/08/2023 8:50 AM CDT): Stable doing well Assessment & Plan (12/19/2018 11:41 AM BOOKKEEPERS SUPERVISOR): Cont clonazepam and mirtazapine. Mood currently stable. Assessment & Plan (12/18/2018 10:27 PM BOOKKEEPERS SUPERVISOR): Cont clonazepam and mirtazapine Gastroesophageal reflux disease with esophagitis 11/08/2018 Overview (11/08/2018): S/p Gabriel July 2016 EGD 03/2017 Evidence of an intact Gabriel fundoplication. Otherwise normal endoscopy 04/2018 24hr PH testing demonstrated no acid exposure Assessment & Plan (09/21/2024 8:13 AM CDT): S/p Gabriel July 2016. Recent EGD showing intact wrap [...] evaluations. Assessment & Plan (12/13/2023 8:50 AM BOOKKEEPERS SUPERVISOR): stable Assessment & Plan (06/08/2023 8:49 AM CDT): jermaine Assessment & Plan (12/19/2018 11:40 AM BOOKKEEPERS SUPERVISOR): - patient with recurrent GERD symptoms and abdominal distention. Currently protecting secretions. CT with finding of small hiatal hernia, no acute findings. -EGD completed, no acute findings, plan to follow up for further work up outpatient. -defer PPI for now, will GI f/u Assessment & Plan (12/18/2018 10:35 PM BOOKKEEPERS SUPERVISOR): - patient with recurrent GERD symptoms and abdominal distention. Currently protecting secretions. CT with finding of small hiatal hernia, changes of Gabriel, and no acute findings. 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 I FARMWORKER on 09/28/2017 Assessment & Plan (12/13/2023 8:50 AM BOOKKEEPERS SUPERVISOR): onesimo [address] Assessment & Plan (06/08/2023 8:49 AM CDT): Currently doing well, follows michael Yeung Resolved Problems Problem Noted Date Diagnosed Date Resolved Date Boil of trunk 03/26/2021 03/07/2023 Assessment & Plan (03/26/2021 1:49 PM BOOKKEEPERS SUPERVISOR): Bactrim DS BID Heat PRN Encounters Date Type Department Care Team Description 10/19/2024 Telephone [facility] [address] [place] [address] Nicolas White MD 10/16/2024 Telephone [facility] [address] [place] [phone] Foster Plasencia MD 10/09/2024 Telephone [facility] [address] [place] [address] Foster Plasencia MD 10/05/2024 Telephone [facility] [facility] [address] [place] [phone] Nicolas White MD blood thinner 10/04/2024 1:45 PM CDT Office Visit [facility] [address], [place] [address] Foster Plasencia MD Primary hypertension (Primary Dx); Paroxysmal atrial fibrillation (HCC) 09/20/2024 1:40 PM CDT Office Visit [facility] [address] [place] [address] [address] [place] [address] [place] [phone] Eugene Ozuna MD Gastroesophageal reflux disease with esophagitis without hemorrhage (Primary Dx); Bloating; Change in bowel habits 09/13/2024 10:15 AM CDT Ancillary Procedure [facility] [address] [facility] [address] [place] [address] Atrial fibrillation, unspecified type (HCC) 09/13/2024 Results Follow-Up [facility] [address] [place] [address] [place] [phone] Nicolas White MD Transthoracic Echo (TTE) Complete W Doppler/CF 09/10/2024 Orders Only [facility] Health Information Management [address] [place] [address] Scanning, Provider 09/10/2024 Telephone [facility] [address] [place] [address] [place] [phone] Nicolas White MD Episode of Afib 09/08/2024 Orders Only [facility] [address] [place] [address] [place] [phone] Nicolas White MD 08/08/2024 Orders Only [facility] [address] [place] [address] Nicolas White MD 07/31/2024 Orders Only [facility] Psych[facility] [address] [facility] [address] [place] [phone] Pradeep Thomas MD Anxiety and depression 07/30/2024 Orders Only [facility] Psych[facility] [address] [facility] [address] [place] [phone] Pradeep Thomas MD Anxiety and depression 07/30/2024 Telephone [facility] [address] [place] [address] Bianca Kay Jolene Needs call back from Last 3 Months Immunizations Immunization Administration Dates Next Due Flucelvax Influenza Quad 11/12/2023 Hep A, Adult 03/10/2014,09/07/2013,09/07/2013 Hep B Vaccine 04/09/2014,09/07/2013,09/07/2013 Influenza, Quadrivalent, Rec ombinant, Egg Free, Preservative Free, Intramuscular 11/08/2015 Influenza, Quadrivalent, Spl it, Intramuscular 11/07/2018 Influenza, Quadrivalent, Spl it, Preservative Free, Intramuscular 10/12/2019,11/07/2018,11/15/2017,11/14,11/24/2016 Influenza, Trivalent, IM (MDV) 5,11/21/2014,11/30/2013,11/30,11/15/2012,11/15/2012 Influenza, Trivalent, Preser vative Free, Intramuscular 11/22/2012,11/22/2012 Influenza, Unspecified 11/07/2022 Anastasia (J&J) SARS-CoV-2 Vaccination 04/12/2020 Moderna Sars-cov-2 Bivalent Vaccine 50 Mcg/0.5 mL (12+ YRS)-Blue/Cantrell 11/12/2023,10/14/2021 Moderna Sars-cov-2 Monovalen t Booster Vaccination (12+ YRS) 10/08/2022 Pneumococcal Conjugate Pcv20 12/13/2023 RSV Vaccine, Pref, Recombina nt, Subunit, Adjuvanted, PF, IM (Arexvy) 12/08/2022 Tdap 05/01/2023 ZOSTER LIVE 03/10/2014,03/10/2014 ZOSTER Recombinant 02/01/2023,11/24/2022 Surgical History Surgery Date Site/Laterality Comments OK UNLISTED PROCEDURE ABDOMEN PERITONEUM & OMENTUM Bilateral Hernia Repair - (Added by TW Conv) SINUS SURGERY Sinus Surgery - (Added by TW Conv) OK LAP,PROSTATECTOMY,RADICAL,W /NERVE SPARE,INCL ROBOTIC 02/07/2007 - 02/07/2008 Prostatect Retropubic Radical W/ Nerve Sparing Laparoscopic - robotic. Josefina 3+4, extraprostatic extension at Left base, (-) margins, [id number] (Added by TW Conv) GABRIEL FUNDOPLICATION 02/08/2016 - 02/06/2017 EXPLORATORY LAPAROTOMY HERNIA REPAIR LASIK COLONOSCOPY 2020 Medical History Medical History Date Comments Anxiety disorder Anxiety - (Adde d by TW Conv) Personal history of other di seases of the digestive system History of hemorrhoids - (Ad ded by TW Conv) Prostate cancer (HCC) 2008 radiation 2010:Concern for colonoscopy Bloating Hypertension IBS (irritable bowel syndrome) GERD (gastroesophageal reflux disease) Arthritis Depression HL (hearing loss) 2017 Dizziness 02/25/2024 Nosebleed 2018 Tinnitus 2017 Panic attacks Family History Medical History Relation Name Comments Rheum arthritis Brother leticia Hearing loss Father toyin Hypertension Father toyin Family history of hypertension - (Added by TW Conv) Leukemia Father toyin Family history of leukemia - (Added by TW Conv) Snoring Father toyin Hearing loss Father's Brother bill Hypertension Father's Brother bill Alzheimer's disease Father's Sister cuca Heart attack Maternal Grandfather several inlaws Cancer Maternal Grandmother several inlaws Alcohol abuse Mother goyo and toyin Alcohol abuse Mother's Brother low Stroke Paternal Grandfather adam Diabetes Paternal Grandmother several inlaws Relation Name Status Comments Brother leticia Father toyin Father's Brother bill Father's Sister cuca Maternal Grandfather several inlaws Maternal Grandmother several inlaws Mother goyo and toyin Mother's Brother low Paternal Grandfather adam Paternal Grandmother several inlaws Social History Tobacco Use Types Packs/Day Years Used Date Smoking Tobacco: Former Cigarettes 0.5 10 0 09/01/1979 - 04/21/1989 Smokeless Tobacco: Never Tobacco Cessation:Counseling Given: Not Answered Comments:1989 stopped Alcohol Use Standard Drinks/Week Comments [...] on file Legal Sex Male 6:01 PM BOOKKEEPERS SUPERVISOR Gender Identity Male 10/14/2020 8:55 PM CDT Sexual Orientation Straight 10/14/2020 8: 55 PM CDT Obstetrics History Last Filed Vital Signs Vital Sign Reading Time Taken Comments Blood Pressure 126/78 10/04/2024 1:21 PM CDT Pulse 61 10/04/2024 1:21 PM CDT Temperature 36.9 C (98.5 F) 09/20/2024 1:29 PM CDT Respiratory Rate 16 10/04/2024 1:21 PM CDT Oxygen Saturation 97% 10/04/2024 1:21 PM CDT Inhaled Oxygen Concentration - - Weight 83.5 kg (184 lb) 10/04/2024 1:21 PM CDT Height 175.3 cm (5' 9) 10/04/2024 1:21 PM CDT Body Mass Index 27.17 10/04/2024 1:21 PM CDT Plan of Treatment Health Maintenance Due Date Last Done Comments Depression Screening 1960 Abdominal Aortic Aneurysm (A AA) Screen 08/24/2023 04/19/2022, 12/18/2018, 09/10/2016 Well Visit 65+ 08/24/2023 06/07/2022, 03/24/2020 Covid-19 Vaccine (5 - 2024-2 6 season) 2024 11/12/2023, 10/08/2022, 10/14/2021, Additional history exists Influenza Vaccine (#1) 2024 , 11/10/2022, 11/07/2022, Additional history exists Fall Risk Assessment 05/24/2025 05/24/2024 Prostate Cancer Screening-PSA 10/23/2025, 10/15/2022, 10/08/2021, Additional history exists DTaP/Tdap/Td Vaccine (2 - Td or Tdap) 04/30/2033 05/01/2023 Colon Cancer Screening-Colonoscopy 05/24/2034 05/24/2024, 05/23/2024, 08/14/2015 Hepatitis B Screening Completed 04/09/2014 , 09/07/2013, 09/07/2013 Zoster Vaccine Completed 02/01/2023, 11/07, 03/10/2014, Additional history exists Hepatitis C Screening Completed 12/13/2023 Pneumococcal vaccine 65+ Completed 12/13/2023 Colon Cancer Screening-CT Colonography Discontinued 05/24/2024, 05/23/2024, 08/14/2015 Colon Cancer Screening-DNA Stool Discontinued 05/24/2024, 05/23/2024, 08/14/2015 Colon Cancer Screening-FIT Discontinued 05/24, 05/23/2024, 08/14/2015 Colon Cancer Screening-Sigmoidoscopy Discontinued 05/24/2024, 05/23/2024, 08/14/2015 Medical Devices Implanted Type Area Application Support Analyst Device Identifier Shelf Expiration Date Model / Serial / Lot Radiation Prostate Description:Implant for prio r prostate radiation Dental Mouth Description:2 dental implant s Procedures Procedure Name Priority Date/Time Associated Diagnosis Comments ELECTROCARDIOGRAM REPORT Routine 10/04/2024 1:24 PM CDT Primary hypertension TRANSTHORACIC ECHO (TTE) COMPLETE W DOPPLER/CF WO CONTRAST Routine 09/13/2024 11:06 AM CDT Atrial fibrillation, unspecified type (HCC) SCAN - RADIOLOGY/IMAGING 09/10/2024 SCAN - LABS 09/08/2024 12:24 PM CDT SCAN - LABS 09/08/2024 9:16 AM CDT SCAN - LABS 09/08/2024 7:31 AM CDT SCAN - LABS 09/08/2024 5:50 AM CDT SCAN - RADIOLOGY/IMAGING 09/08/2024 12:46 AM CDT SCAN - LABS 09/08/2024 12:17 AM CDT SCAN - LABS 09/08/2024 12:17 AM CDT SCAN - LABS 09/08/2024 12:04 AM CDT SCAN - LABS 09/08/2024 SCAN - LABS 09/07/2024 11:57 PM CDT SCAN - RADIOLOGY/IMAGING 08/08/2024 11:54 AM CDT COLONOSCOPY 05/24/2024 9:30 AM CDT HEPATITIS C ANTIBODY Routine 12/13/2023 9:25 AM BOOKKEEPERS SUPERVISOR Need for hepatitis C screening test PSA, TOTAL AND FREE Routine 10/24/2023 9:[address] ABDOMEN PELVIS W CONTRAST Schedule Routine, Read Routine (OP Routine) 04/19/2022 2:33 PM CDT Bloating Gas pain S/P Gabriel fundoplication (without gastrostomy tube) procedure from Last 3 Months or Most Recently Relevant to Health Maintenance Results * Electrocardiogram Report (10/04/2024 1:24 PM CDT) us Foster Plasencia MD ECG ORDERABLES Final Re sult * TRANSTHORACIC ECHO (TTE) COMPLETE W DOPPLER/CF WO CONTRAST (09/13/2024 11:06 AM CDT) Estimated EF 60-65 % CONS SCIMAGE EF Mod BP 64 % CONS SCIMAGE Anatomical Region Laterality Modality Ultrasound 09/13/2024 10:1 4 AM CDT Narrative 09/13/2024 12:52 PM CDT [facility] [address], [place] [address] [address] [facility] [address], [place] [address] P:[phone] P:[phone] Echocardiographic Report Patient Name: BRODY GARCIA J : 1960 Study Date: 09/13/2024 10:14:21 AM Gender: M Stonemason Supervisor: Elana Romo)(CT), [facility] Location: [facility] Provider: NICOLAS WHITE Height(Cm): 175 BSA: 2 Weight(Kg): 82.6 Heart Rate: 54 BP: 128 / 80 Quality: Good Order Provider: NICOLAS WHITE PROCEDURES: Echocardiographic Report: Transthoracic echocardiogram with complete 2D, M-Mode, and color Doppler examination. With Strain Analysis. INDICATIONS: I48.91 Unspecified atrial fibrillation. MEASUREMENTS: 2D/MM Value Range Doppler Value Range EF Mod BP 64 % [ 52 - 72 ] DALLAS Vmax 2.67 cm2 [ 2.00 - 4.00 ] Estimated EF 60-65 % AV Mean PG 4 mmHg LV GLS -18.63 % AV Peak Meliton 1.37 m/s [ 1.00 - 1.70 ] LVIDd 2D 4.48 cm [ 4.20 - 5.80 ] AV Peak PG 8 mmHg LVIDs 2D 2.86 cm [ 2.50 - 4.00 ] AV VTI 29.14 cm LVPWd 2D 0.93 cm [ 0.60 - 1.00 ] LVOT Diam 2.11 cm [ 1.70 - 2.10 ] IVSd 2D 0.87 cm [ 0.60 - 1.00 ] LVOT Peak Meliton 1.05 m/s [ 0.70 - 1.10 ] AoR Diam 2D 3.63 cm [ 3.10 - 3.70 ] LVOT VTI 22.17 cm LA Volume 42.61 ml [ 18.00 - 58.00 ] MV E Peak Meliton 0.51 m/s [ 0.60 - 1.30 ] LA Volume Index 21 cc/m2 [ 16 - 28 ] MV A Peak Meliton 0.70 m/s [ 1.00 - 1.20 ] RA Volume 29.98 ml MV Decel Time 277 msec [ 104 - 258 ] PV Peak Meliton 1.13 m/s [ 0.40 - 0.80 ] TR Peak Meliton 2.40 m/s [ 1.00 - 2.80 ] TR Peak PG 23 mmHg RV S` 12.85 mmHg Lateral E` 0.09 m/s [ 0.10 - 0.15 ] Septal E` 0.07 m/s [ 0.08 - 0.15 ] E` 0.08 m/s E/E` 6 Tapse 2.37 cm [ 1.71 - 5.00 ] 2D/MM Value Range Doppler Value Range - FINDINGS: Interpretation Site: Exam was interpreted at [facility]. Left Ventricle: Normal left ventricular systolic function. No focal wall motion abnormalities. Normal left ventricular size. Normal left ventricular wall thickness. Impaired diastolic relaxation Grade I. Ejection fraction is measured at 64 %. Ejection Fraction is visually estimated to be 60-65 %. Global Longitudinal Strain is -19 %. GLS is normal. Right Ventricle: Normal right ventricular size. Normal right ventricular systolic function. Left Atrium: There is mild to moderate enlargement of left atrium. Right Atrium: There is mild enlargement of right atrium. Atrial Septum: Normal atrial septum. Mitral Valve: Normal appearance of the mitral valve. Mild mitral valve regurgitation. There is no hemodynamically significant mitral stenosis by Doppler. Aortic Valve: Normal appearance of the aortic valve. No evidence of hemodynamically significant aortic stenosis by Doppler. Trileaflet aortic valve. Trace aortic valve regurgitation. Tricuspid Valve: Normal appearance of the tricuspid valve. Normal right ventricular systolic pressure. Estimated peak RVSP is 25-30 mmHg. Mild tricuspid regurgitation. Pulmonic Valve: Normal appearance of the pulmonic valve. No pulmonic stenosis. Mild pulmonic regurgitation. Pericardium: Normal pericardium with no significant pericardial effusion. Aorta: Sinus of Valsalva is normal. IVC: Normal size and normal respiratory collapse consistent with normal right atrial pressure (<5 mmHg). CONCLUSIONS: Normal left ventricular systolic function. No focal wall motion abnormalities. Normal left ventricular size. Normal left ventricular wall thickness. Impaired diastolic relaxation Grade I. Ejection fraction is measured at 64 %. Ejection Fraction is visually estimated to be 60-65 %. Global Longitudinal Strain is -19 %. GLS is normal. There is mild to moderate enlargement of left atrium. There is mild enlargement of right atrium. Mild mitral valve regurgitation. Mild tricuspid regurgitation. Mild pulmonic regurgitation. Normal sinus rhythm. Electronically Signed By: Heath Chau MD 09/13/2024 12:51:44 PM CDT Procedure Note Heath Chau MD - 09/13/2024 [facility] [address] [facility] [address], [place] [address] [address] [facility] [address], [place] [address] P:[phone] P:[phone] Echocardiographic Report Patient Name: BRODY GARCIA J : 1960 Study Date: 09/13/2024 10:14:21 AM Gender: M Stonemason Supervisor: Elana Espana (Deepthi)(CT), [facility] Location: [facility] Provider: NICOLAS WHITE Height(Cm): 175 BSA: 2 Weight(Kg): 82.6 Heart Rate: 54 BP: 128 / 80 Quality: Good Order Provider: NICOLAS WHITE PROCEDURES: Echocardiographic Report: Transthoracic echocardiogram with complete 2D, M-Mode, and color Dopplerexamination. With Strain Analysis. INDICATIONS: I48.91 Unspecified atrial fibrillation. MEASUREMENTS: 2D/MM Value Range Doppler ValueRange EF Mod BP 64 % [ 52 - 72 ] DALLAS Vmax 2.67cm2 [ 2.00 - 4.00 ] Estimated EF 60-65 % AV Mean PG 4mmHg LV GLS -18.63 % AV Peak Meliton 1.37m/s [ 1.00 - 1.70 ] LVIDd 2D 4.48 cm [ 4.20 - 5.80 ] AV Peak PG 8mmHg LVIDs 2D 2.86 cm [ 2.50 - 4.00 ] AV VTI 29.14cm LVPWd 2D 0.93 cm [ 0.60 - 1.00 ] LVOT Diam 2.11cm [ 1.70 - 2.10 ] IVSd 2D 0.87 cm [ 0.60 - 1.00 ] LVOT Peak Meliton 1.05m/s [ 0.70 - 1.10 ] AoR Diam 2D 3.63 cm [ 3.10 - 3.70 ] LVOT VTI 22.17cm LA Volume 42.61 ml [ 18.00 - 58.00 ] MV E Peak Meliton 0.51m/s [ 0.60 - 1.30 ] LA Volume Index 21 cc/m2 [ 16 - 28 ] MV A Peak Meliton 0.70m/s [ 1.00 - 1.20 ] RA Volume 29.98 ml MV Decel Time 277msec [ 104 - 258 ] PV Peak Meliton 1.13 m/s [ 0.40 - 0.80 ] TR Peak Meliton 2.40 m/s [ 1.00 - 2.80 ] TR Peak PG 23 mmHg RV S` 12.85 mmHg Lateral E` 0.09 m/s [ 0.10 - 0.15 ] Septal E` 0.07 m/s [ 0.08 - 0.15 ] E` 0.08 m/s E/E` 6 Tapse 2.37 cm [ 1.71 - 5.00 ] 2D/MM Value Range Doppler ValueRange - FINDINGS: Interpretation Site: Exam was interpreted at [facility]. Left Ventricle: Normal left ventricular systolic function. No focal wall motionabnormalities. Normal left ventricular size. Normal left ventricular wall thickness. Impaireddiastolic relaxation Grade I. Ejection fraction is measured at 64 %. EjectionFraction is visually estimated to be 60-65 %. Global Longitudinal Strain is -19 %. GLS isnormal. Right Ventricle: Normal right ventricular size. Normal right ventricular systolicfunction. Left Atrium: There is mild to moderate enlargement of left atrium. Right Atrium: There is mild enlargement of right atrium. Atrial Septum: Normal atrial septum. Mitral Valve: Normal appearance of the mitral valve. Mild mitral valve regurgitation.There is no hemodynamically significant mitral stenosis by Doppler. Aortic Valve: Normal appearance of the aortic valve. No evidence of hemodynamicallysignificant aortic stenosis by Doppler. Trileaflet aortic valve. Trace aortic valveregurgitation. Tricuspid Valve: Normal appearance of the tricuspid valve. Normal right ventricularsystolic pressure. Estimated peak RVSP is 25-30 mmHg. Mild tricuspid regurgitation. Pulmonic Valve: Normal appearance of the pulmonic valve. No pulmonic stenosis. Mildpulmonic regurgitation. Pericardium: Normal pericardium with no significant pericardial effusion. Aorta: Sinus of Valsalva is normal. IVC: Normal size and normal respiratory collapse consistent with normal rightatrial pressure (<5 mmHg). CONCLUSIONS: Normal left ventricular systolic function. No focal wall motionabnormalities. Normal left ventricular size. Normal left ventricular wall thickness. Impaireddiastolic relaxation Grade I. Ejection fraction is measured at 64 %. EjectionFraction is visually estimated to be 60-65 %. Global Longitudinal Strain is -19 %. GLS isnormal. There is mild to moderate enlargement of left atrium. There is mild enlargement of right atrium. Mild mitral valve regurgitation. Mild tricuspid regurgitation. Mild pulmonic regurgitation. Normal sinus rhythm. Electronically Signed By: Heath Chau MD 09/13/2024 12:51:44 PM CDT us Nicolas White MD CV ECHO PROCEDURES Final Resu lt * SCAN - RADIOLOGY/IMAGING (09/10/2024) Anatomical Region Laterality Modality Other Provider Scanning Final Result * SCAN - LABS (09/08/2024 12:24 PM CDT) us Nicolas White MD Final Result * SCAN - LABS (09/08/2024 9:16 AM CDT) us Nicolas White MD Final Result * SCAN - LABS (09/08/2024 7:31 AM CDT) us Nicolas White MD Final Result * SCAN - LABS (09/08/2024 5:50 AM CDT) us Nicolas White MD Final Result * SCAN - RADIOLOGY/IMAGING (09/08/2024 12:46 AM CDT) Anatomical Region Laterality Modality Other us Nicolas White MD Final Result * SCAN - LABS (09/08/2024 12:17 AM CDT) us Nicolas White MD Final Result * SCAN - LABS (09/08/2024 12:17 AM CDT) us Nicolas White MD Final Result * SCAN - LABS (09/08/2024 12:04 AM CDT) us Nicolas White MD Final Result * SCAN - LABS (09/08/2024) Provider Scanning Final Result * SCAN - LABS (09/07/2024 11:57 PM CDT) us Nicolas White MD Final Result * SCAN - RADIOLOGY/IMAGING (08/08/2024 11:54 AM CDT) Anatomical Region Laterality Modality Other us Nicolas White MD Final Result * Colonoscopy (05/24/2024 9:30 AM CDT) Anatomical Region Laterality Modality Other Narrative Procedure Note India Garcia MD - 05/24/2024 9:30 AM CDT ENDOSCOPY LAB Patient Name: Brody Garcia Procedure Date: 05/24/2024 9:30 AM Date of : 1960 Admit Type: Outpatient Age: 63 Gender: Male Attending MD: India Garcia M.D. Room: [facility] ENDOSCOPY ROOM 01 Note Status: Finalized Procedure: Colonoscopy Indications: Screening for colorectal malignant neoplasm, inadequate bowel prep on last colonoscopy(yesterday), Last adequate colonoscopy: 2015, Incidental changein bowel habits noted, bloating, IBS-C; h/o prostate radiation noted Providers: India Garcia M.D. Referring MD: Eguene Ozuna M.D. Medicines: Monitored Anesthesia Care Complications: No immediate complications. Estimated Blood Loss: Estimated blood loss was minimal. Procedure: Pre-Anesthesia Assessment: - Prior to the procedure, a History and Physicalwas performed, and patient medications, allergies and sensitivities were reviewed. The patient'stolerance of previous anesthesia was reviewed. - The risks and benefits of the procedure and the sedation options and risks were discussed with the patient. All questions were answered and informed consent was obtained. The benefits, risks and alternatives of theprocedure and sedation were discussed and informed consentwas obtained. All questions were answered. Please referto the signed informed consent document in the medical record. The scope was passed under direct vision.The [id number] was introduced through the anusand advanced to the terminal ileum, with identificationof the appendiceal orifice and IC valve. Thecolonoscopy was performed without difficulty. The patient tolerated the procedure well. The quality of thebowel preparation was evaluated using the BBPS (BostonBowel Preparation Scale) with scores of: Right Colon = 3, Transverse Colon = 3 and Left Colon = 3 (entiremucosa seen well with no residual staining, smallfragments of stool or opaque liquid). The total BBPS score equals 9. The bowel preparation used was Clenpiq (single dose first attempt) and GoLYTELY (splitdose after inintial failed prep) via extended prep with split dose instruction. AI Technology was utilized during the procedure to aid in polyp detection. Findings: The perianal and digital rectal examinations were normal. A few diverticula were found in the sigmoid colon. The terminal ileum appeared normal. A 5 mm polyp was found in the hepatic flexure. The polyp was sessile. The polyp was removed with a cold snare. Resection and retrieval were complete. Hemorrhoids were found during retroflexion. The exam was otherwise without abnormality on direct and retroflexion views. Impression: - Diverticulosis in the sigmoid colon. - The examined portion of the ileum was normal. - One 5 mm polyp at the hepatic flexure, removedwith a cold snare. Resected and retrieved. - Hemorrhoids. - The examination was otherwise normal on directand retroflexion views. Recommendation: - The patient will be observed post-procedure,until all discharge criteria are met. - Repeat colonoscopy in 7-10 years for surveillance based on pathology results. - Follow up with referring physician. - Biopsy results are typically available within 7-10 days and you will be contacted with the results. If you have not recieved your results within this timeframe, please call [phone] regarding your results. - Contact Information: During normal business hours - Please call theNurse Coordinator: [phone] After hours, evening, nights, weekends and holidays- Please call the hospital sand cutting machine operator at and ask for the GI fellow inclusion teacher. - . Attending Participation: I personally performed the entire procedure. Electronically Signed By: India Garcia M.D. India Garcia M.D. 05/24/2024 10:17:57 AM Number of Addenda: 0 Note Initiated On: 05/24/2024 9:30 AM India Garcia MD ENDOSCOPY PROCEDURES Fin al Result * Hepatitis C antibody Blood (12/13/2023 9:25 AM BOOKKEEPERS SUPERVISOR) Pathologist [facility] Hep C Ab Nonreactive Nonreactive Comment:Antibodies to HCV no t detected. Does NOT exclude the possibility of recent exposure to HCV. Current interpretive data was last revised on 21 Blood 12/13/2023 9:25 AM BOOKKEEPERS SUPERVISOR 12/13/2023 9:37 AM BOOKKEEPERS SUPERVISOR Nicolas White MD LAB MICROBIOLOGY - GENERAL OR DERABLES Final Result [facility] Department [place] [address] * PSA, total and free (10/24/2023 9:34 AM CDT) Pathologist [facility] PSA 0.2 < OR = 4.0 ng/mL [facility] PSA, free <0.1 ng/mL [facility] PSA, free UNABLE TO CALCULATE >25 % (calc) [facility] Comment: The free PSA level is below detectable limits. We are unable to calculate a % free PSA. PSA(ng/mL) Free PSA(%) Estimated(x) Probability of Cancer(as%) 0-2.5 (*) Approx. 1 2.6-4.0(1) 0-27(2) 24(3) 4.1-10(4) 0-10 56 11-15 28 16-20 20 21-25 16 >or =26 8 >10(+) N/A >50 References:(1)Mandyona et al.:Urology 60: 469-474 (2002) (2)Jim et al.:J.Urol 168: 922-925 (2001) Free PSA(%) Sensitivity(%) Specificity(%) < or = 25 85 19 < or = 30 93 9 (3)Jim et al.:NEWTON 277: 4128-3646 (1996) (4)Jim et al.:NEWTON 279: 7558-9368 (1998) (x)These estimates vary with age, ethnicity, family history and JOSE results. (*)The diagnostic usefulness of % Free PSA has not been established in patients with total PSA below 2.6 ng/mL (+)In men with PSA above 10 ng/mL, prostate cancer risk is determined by total PSA alone. The Total PSA value from this assay system is standardized against the equimolar PSA standard. The test result will be approximately 20% higher when compared to the WHO-standardized Total PSA (Siemens assay). Comparison of serial PSA results should be interpreted with this fact in mind. PSA was performed using the Ingrid Cici Immunoassay method. Values obtained from different assay methods cannot be used interchangeably. PSA levels, regardless of value, should not be interpreted as absolute evidence of the presence or absence of disease. Your request to have a duplicate copy faxed has been acknowledged. Queued to: [id number] 10/24/2023 9:34 AM CDT 10/24/2023 9:35 AM CDT us Taj Yeung MD LAB BLOOD ORDERABLES F inal Result [facility] [address] [place] [address] * CT Abd/Pelvis with contrast (04/19/2022 2:33 PM CDT) Anatomical Region Laterality Modality Body N/A Computed Tomogra phy 04/19/2022 2:51 PM CDT Impressions 04/19/2022 3:33 PM CDT Expected findings of fundoplication. No abdominal or pelvic finding to explain patient's symptoms. Dictated by: Nyasia Gutierrez MD The radiology attending physician has personally reviewed this study, and had reviewed and/or edited this written report and agrees with it. Electronically signed by: Eugene Malik M.D. Narrative 04/19/2022 3:33 PM CDT EXAMINATION: Computed tomography of the abdomen and pelvis with intravenous contrast HISTORY: Abdominal pain and bloating status post Gennaro fundoplication. TECHNIQUE: Transaxial computed tomographic images of the abdomen and pelvis were obtained with intravenous contrast according to the standard protocol after the uneventful administration of 75 mL Opti-Ray 350 intravenous contrast. COMPARISON: CT abdomen pelvis dated 12/18/2018 FINDINGS: Imaged lung bases are clear. Heart size is normal. No pericardial effusion. There are changes of fundoplication below the diaphragm. No recurrent hernia. No focal hepatic lesion. No intrahepatic or extra hepatic biliary ductal dilation. The gallbladder, pancreas, spleen and adrenal glands are normal. Kidneys enhance symmetrically without hydronephrosis. Unchanged left renal cyst. Urinary bladder is normal. Prostate is surgically absent. Small and large bowel are normal in caliber without evidence of obstruction. There is colonic diverticulosis without evidence of diverticulitis. There is no abdominal or pelvic lymphadenopathy. No ascites or pneumoperitoneum. Unchanged right-sided hydrocele. Fat containing left inguinal hernia. Abdominal aorta is normal in caliber. Grade 1 anterolisthesis of L5 on S1 with bilateral pars defects. No suspicious osseous lesion. Procedure Note Eugene Malik MD - 04/19/2022 EXAMINATION: Computed tomography of the abdomen and pelvis with intravenous contrast HISTORY: Abdominal pain and bloating status post Gennaro fundoplication. TECHNIQUE: Transaxial computed tomographic images of the abdomen and pelvis were obtained with intravenous contrast according to the standard protocol after the uneventful administration of 75 mL Opti-Ray 350 intravenous contrast. COMPARISON: CT abdomen pelvis dated 12/18/2018 FINDINGS: Imaged lung bases are clear. Heart size is normal. No pericardial effusion. There are changes of fundoplication below the diaphragm. No recurrent hernia. No focal hepatic lesion. No intrahepatic or extra hepatic biliary ductal dilation. The gallbladder, pancreas, spleen and adrenal glands are normal. Kidneys enhance symmetrically without hydronephrosis. Unchanged left renal cyst. Urinary bladder is normal. Prostate is surgically absent. Small and large bowel are normal in caliber without evidence of obstruction. There is colonic diverticulosis without evidence of diverticulitis. There is no abdominal or pelvic lymphadenopathy. No ascites or pneumoperitoneum. Unchanged right-sided hydrocele. Fat containing left inguinal hernia. Abdominal aorta is normal in caliber. Grade 1 anterolisthesis of L5 on S1 with bilateral pars defects. No suspicious osseous lesion. IMPRESSION: Expected findings of fundoplication. No abdominal or pelvic finding to explain patient's symptoms. Dictated by: Nyasia Gutierrez MD The radiology attending physician has personally reviewed this study, and had reviewed and/or edited this written report and agrees with it. Electronically signed by: Eugene Malik M.D. Eugene Ozuna MD IMG CT PROCEDURES Final Res ult from Last 3 Months or Most Recently Relevant to Health Maintenance Insurance [facility] Address: [facility] [id number] [place] [address] [facility] MEDICARE [employer]ET[employer] MEDICARE Advance Directives For more information, please contact: [phone] * Full Code (Latest Code Status on File) Date Activated Date Inactivated Comments 05/24/2024 7:47 AM 05/24/2024 2:53 PM * Full Code Date Activated Date Inactivated Comments 05/23/2024 9:49 AM 05/23/2024 4:47 PM * Full Code Date Activated Date Inactivated Comments 12/18/2018 9:19 PM 12/19/2018 8:00 PM Care Teams Manufacturing Engineer Assembly Relationship Specialty Start Date End Date Nicolas White MD PCP - General 03/22/16 Hayley Araya, VEGETABLE I FARMWORKER Nurse Practitioner Radiation Oncology 09/28/17 Taj Yeung MD [address] [facility] [address] [place] [address] Radiation Oncologist Radiation Oncology 09/28/17
--- OUTSIDE RECORDS SUMMARY | 2024-10-20 19:33 | XMS_ITS | Clinical Summary ---
Author Organization [facility] Address [address] [place] [address] Care Team Providers Care Bench Shear Operator Name Role Phone Nicolas Gayle MD Primary Care Provider [phone] Source Comments [facility] Affiliates and Associated Physician Practices is amultiple site organization consisting of ambulatory clinics and hospital sitesin [place], [place], [place] and [place]. This disclosure is being madepursuant to the Care Everywhere program and may not contain all information available regarding this patient. Last updated 17.[facility] [employer] Allergies Active Allergy Reactions Criticality Noted Date Comments Cephalosporins 11/08/2015 Ciprofloxacin 11/08/2015 Levofloxacin 11/08/2015 Penicillins 11/08/2015 Medications * Be aware that medications may not be up to date on this document. Alwaysverify current medications with the patient. mirtazapine (REMERON) 15 MG tablet Take 15 mg by mouth at bedtime Active clonazePAM (KLONOPIN) 1 MG tablet Take 1 mg by mouth 2 times daily Active lisinopril (PRINIVIL; ZESTRIL) 20 MG tablet Take 20 mg by mouth once daily Active metoprolol succinate XL 24hr (TOPROL XL) 50 MG tablet Take 50 mg by mouth once daily Active ALPRAZolam (XANAX) 0.5 MG tablet Take 0.5 mg by mouth 3 times daily as needed for Anxiety Active aspirin (ASPIRIN) 81 MG tablet Take 81 mg by mouth once daily Active fluticasone propionate (FLONASE) 50 MCG/ACT nasal sprayIndication s:Allergic Rhinitis [place] 2 sprays into each nostril once daily Reasons: Allergic Rhinitis 1 bottles 01/15/2017 Active Immunizations Immunization Administration Dates Next Due FLU VACCINE QUAD IIV4 PF ID 11/08/2015 INFLUENZA VACCINE, QUADR. (F LUZONE; FLULAVAL; FLUARIX; AFLURIA QUADRIVALENT; 6MO+), 0.5 ML (IIV4) 11/24/2016 Social History Tobacco Use Types Packs/Day Years Used Date Smoking Tobacco: Former Cigarettes Q uit: 1989 Smokeless Tobacco: Never Sex and Gender Information Value Date Recorded Sex Assigned at Not on file Legal Sex Male 5:59 PM CDT Gender Identity Not on file Sexual Orientation Not on file Last Filed Vital Signs Vital Sign Reading Time Taken Comments Blood Pressure 140/80 01/15/2017 10:44 AM PULP MAKER Pulse 66 01/15/2017 10:44 AM PULP MAKER Temperature 36.9 C (98.4 F) 01/15/2017 10:44 AM PULP MAKER Respiratory Rate - - Oxygen Saturation 97% 01/15/2017 10:44 AM PULP MAKER Inhaled Oxygen Concentration - - Weight 77.1 kg (170 lb) 01/15/2017 10:44 AM PULP MAKER Height 175.3 cm (5' 9) 01/15/2017 10:44 AM PULP MAKER Body Mass Index 25.1 01/15/2017 10:44 AM PULP MAKER Plan of Treatment Health Maintenance Due Date Last Done Comments COLOGUARD (AGES 45-75) - COL ON CA SCREENING 1960 COLON MONITORING 1960 COLONOSCOPY - COLON CA SCREENING 1960 CT COLONOGRAPHY - COLON CA SCREENING 1960 Colorectal Cancer Screening 1960 FIT - COLON CA SCREENING 1960 FLEX SIG - COLON CA SCREENING 1960 LIPID TESTING 1960 HEPATITIS C SCREENING 08/18/1976 DTAP/TDAP/TD VACCINES (1 - Tdap) 1977 PNEUMOCOCCAL VACCINE 50+ (1 of 1 - PCV) 2008 ZOSTER VACCINE (1 of 2) 2008 SCREENING FOR DIABETES 01/15/2017 AAA SCREENING 08/24/2023 DEPRESSION SCREENING 02/08/2024 COVID-19 VACCINE ( - 2023-2 5 season) 2024 INFLUENZA VACCINE (#1) 2024 7, 11/08/2015 Respiratory Syncytial Virus (RSV) Vaccine Pt: or over 60 yrs (1 - 1-dose 75+ series) 2033 HEPATITIS B VACCINE Aged Out No longe r eligible based on patient's age to complete this topic HIB VACCINE Aged Out No longer eligi ble based on patient's age to complete this topic HPV VACCINE Aged Out No longer eligi ble based on patient's age to complete this topic MENINGOCOCCAL (Group B) VACCINE SHARED DECISION-MAKING Aged Out No longer eligible based on patient's age to complete this topic MENINGOCOCCAL GROUPS A/C/Y/W VACCINE Aged Out No longer eligible b ased on patient's age to complete this topic Insurance Care Teams Bench Shear Operator Relationship Specialty Start Date End Date Nicolas Gayle MD PCP - General Internal Medicine 11/08/15
--- OUTSIDE RECORDS SUMMARY | 2024-10-20 19:33 | XMS_ITS | Encounter Summary ---
Author Organization [facility] Address [address] [place] [address] Care Team Providers Care Upper And Bottom Lacer Hand Name Role Phone Nicolas Gayle MD Primary Care Provider [phone] Hayley Araya NP Unavailable [phone] Taj Yeung MD Unavailable [phone] Encounter Details Date Type Department Care Team (Late st Contact Info) Description 10/19/2024 Telephone [facility] [address] [address] Nicolas Gayle MD [facility] [address] [place] [address] Social History Tobacco Use Types Packs/Day Years [...] on file Legal Sex Male 6:01 PM PARKING REGULATION ENFORCEMENT OFFICER Gender Identity Male 10/14/2020 8:55 PM CDT Sexual Orientation Straight 10/14/2020 8: 55 PM CDT documented as of this encounter Miscellaneous Notes * Telephone Encounter - Azul Palacios CMA - 10/19/2024 8:29 AM CDT A user error has taken place: encounter opened in error, closed for administrative reasons. documented in this encounter Plan of Treatment Not on file documented as of this encounter Visit Diagnoses Not on filedocumented in this encounter Care Teams Upper And Bottom Lacer Hand Relationship Specialty Start Date End Date Nicolas Gayle MD PCP - General 03/22/16 Hayley Araya NP Nurse Practitioner Radiation Oncology 09/28/17 Taj Yeung MD [address] [facility] [address] [place] [address] Radiation Oncologist Radiation Oncology 09/28/17 documented as of this encounter
[2024-10-20 19:39] VITALS: BP 141/84; PULSE 89; RESP 18; TEMP 37.1; O2SAT 97
[2024-10-20 22:00] LABS: Hematocrit 37.5 % (42.0-52.0); Hemoglobin 13.2 g/dL (14.0-18.0); Immature Granulocyte Percent A 0.6 % (0-0.5); Lymphocytes Absolute Auto 0.99 K/mm3 (0.9-3.2); Mean Corpuscular HGB Conc 35.2 g/dl (32-36); Mean Corpuscular Hemoglobin 30.5 pg (26-34); Mean Corpuscular Volume 86.6 fl (80-100); Nucleated Red Blood Cells Absolute Auto 0.000 K/mm3 (0.0-0.012); Nucleated Red Blood Cells Perc 0.0 % (0.0-0.2); Platelet Count Result 155 k/mm3 (150-375); Red Blood Count 4.33 M/mm3 (4.6-6.20); White Blood Count 6.5 K/mm3 (4.5-10.0)
[2024-10-20 22:10] LABS: Alanine Aminotransferase 29 U/L (6-50); Albumin Level 4.6 g/dL (3.5-5.1); Alkaline Phosphatase 85 U/L (38-126); Anion Gap 11 mmol/L (4-12); Aspartate Amino Transferase 42 U/L (17-59); Bilirubin,Total 0.6 mg/dL (0.2-1.3); Blood Urea Nitrogen 19 mg/dL (9-20); Calcium 9.2 mg/dL (8.4-10.2); Carbon Dioxide 25 mmol/L (22-30); Chloride 103 mmol/L (98-107); Estimated CRCL calculation 61 ml/min; Estimated Glomerular Filt Rate > 60; Glucose 95 mg/dL (65-110); Lipase 138 U/L (23-300); Potassium 4.1 mmol/L (3.4-5.0); Sodium 139 mmol/L (137-145); Total Protein 7.6 g/dL (6.3-8.2)
[2024-10-20 22:14] LABS: INR 2.2; Prothrombin Time 24.1 Seconds (11.1-14.7)
[2024-10-20 22:15] LABS: Partial Thromboplastin Time 45.2 Seconds (22.3-36.8)
[2024-10-20 22:22] LABS: Troponin I < 0.012 ng/mL (0.000-0.034)
[2024-10-20 23:12] VITALS: O2SAT 96
[2024-10-20 23:17] VITALS: O2SAT 96
[2024-10-20 23:30] VITALS: BP 136/83; O2SAT 95
[2024-10-20 23:31] VITALS: O2SAT 97
--- OUTSIDE RECORDS SUMMARY | 2024-10-20 23:46 | XMS_ITS | Clinical Summary ---
Author Organization [facility] Address [address] [place] [address] Care Team Providers Care Allocations Clerk Name Role Phone Nicolas White MD Primary Care Provider [phone] Hayley Araya NP Unavailable [phone] Taj Yeung MD Unavailable [phone] Allergies Active Allergy Reactions Criticality Noted Date [...] 12/13/2023 Assessment & Plan (12/13/2023 8:52 AM SOCIAL MEDIA MARKETER): Started medication in June, needs follow up to assess result, check lipid Pain of left hand 06/08/2023 Assessment & Plan (06/08/2023 8:50 AM CDT): Check xray, likely oa Dysfunction of both eustachian tubes 03/26/2021 Assessment & Plan (03/26/2021 1:46 PM SOCIAL MEDIA MARKETER): Flonase BID (use, s/e, technique reviewed) Thrush of mouth and esophagus 03/26/2021 Assessment & Plan (03/26/2021 1:53 PM SOCIAL MEDIA MARKETER): Fluconazole daily x 7d Warm salt water gargles Recurrent sinusitis 09/22/2020 HTN (hypertension) 12/18/2018 Assessment & Plan (06/12/2024 8:31 AM CDT): BP at target. Continue medication for target directed therapy Assessment & Plan (12/13/2023 8:50 AM SOCIAL MEDIA MARKETER): Bp at target, continue medication for target directed therapy Assessment & Plan (06/08/2023 8:50 AM CDT): Bp at target, continue medication for target directed therapy Assessment & Plan (03/07/2023 12:47 PM SOCIAL MEDIA MARKETER): Reassurance Quit home monitoring Continue current meds Assessment & Plan (03/02/2021 2:48 PM SOCIAL MEDIA MARKETER): BP today is normal. Check CMP. Assessment & Plan (12/19/2018 11:41 AM SOCIAL MEDIA MARKETER): Cont lisinopril and metoprolol XL. Blood pressure stable. Assessment & Plan (12/18/2018 10:26 PM SOCIAL MEDIA MARKETER): Cont lisinopril and metoprolol XL Anxiety and depression 12/18/2018 Assessment & Plan (06/12/2024 8:31 AM CDT): Per psychiatry. Medication recently increased. Assessment & Plan (12/13/2023 8:50 AM SOCIAL MEDIA MARKETER): To change psychiatrist soon Assessment & Plan (06/08/2023 8:50 AM CDT): Stable doing well Assessment & Plan (12/19/2018 11:41 AM SOCIAL MEDIA MARKETER): Cont clonazepam and mirtazapine. Mood currently stable. Assessment & Plan (12/18/2018 10:27 PM SOCIAL MEDIA MARKETER): Cont clonazepam and mirtazapine Gastroesophageal reflux disease [...] evaluations. Assessment & Plan (12/13/2023 8:50 AM SOCIAL MEDIA MARKETER): stable Assessment & Plan (06/08/2023 8:49 AM CDT): jermaine Assessment & Plan (12/19/2018 11:40 AM SOCIAL MEDIA MARKETER): - patient with recurrent GERD symptoms and abdominal distention. Currently protecting secretions. CT with finding of small hiatal hernia, no acute findings. -EGD completed, no acute findings, plan to follow up for further work up outpatient. -defer PPI for now, will GI f/u Assessment & Plan (12/18/2018 10:35 PM SOCIAL MEDIA MARKETER): - patient with recurrent GERD symptoms and abdominal distention. Currently protecting secretions. CT with finding of small hiatal hernia, changes of Gabriel, and no acute findings. - GI consulted, plan for EGD in AM - consider PPI dependent on findings Chronic rhinitis 05/01/2015 Epistaxis 04/16/2015 Gastroesophageal reflux disease 12/04/2012 External hemorrhoids 03/24/2012 Anal fissure 02/03/2009 Dizziness 09/26/2008 Malignant neoplasm of prostate ([facility]/HCC) 008 Cancer Staging:Pathologic stage from 11/09/2007:Stage III(T3a, N0, M0, G2) - Signed by Hayley Araya COMMUNITY HEALTH NURSE STAFF on 09/28/2017 Assessment & Plan (12/13/2023 8:50 AM SOCIAL MEDIA MARKETER): onesimo [address] Assessment & Plan (06/08/2023 8:49 AM CDT): Currently doing well, follows michael Yeung Resolved Problems Problem Noted Date Diagnosed Date Resolved Date Boil of trunk 03/26/2021 03/07/2023 Assessment & Plan (03/26/2021 1:49 PM SOCIAL MEDIA MARKETER): Bactrim DS BID Heat PRN Encounters Date Type Department Care Team Description 10/19/2024 Telephone [facility] [address] [facility] [address] [place] [address] Nicolas White MD 10/16/2024 Telephone [facility] Card[facility] [address] [facility] [place] [address] Foster Plasencia MD 10/09/2024 Telephone [facility] Cardiology [address] [place] [address] Foster Plasencia MD 10/05/2024 Telephone [facility] [facility] [address] [place] [phone] Nicolas White MD blood thinner 10/04/2024 1:45 PM CDT Office Visit [facility] Card[facility] [address] [facility] [address], [place] [address] Foster Plasencia MD Primary hypertension (Primary Dx); Paroxysmal atrial fibrillation (HCC) 09/20/2024 1:40 PM CDT Office Visit [facility] Gastroenterology [address] [place] [address] [address]th [place] [address] [place] [phone] Eugene Ozuna MD Gastroesophageal reflux disease with esophagitis without hemorrhage (Primary Dx); Bloating; Change in bowel habits 09/13/2024 10:15 AM CDT Ancillary Procedure [facility] Cardiology [address] [facility] [address] [place] [address] Atrial fibrillation, unspecified type (HCC) 09/13/2024 Results Follow-Up [facility] [address] [place] [address] [address] [place] [address] Nicolas White MD Transthoracic Echo (TTE) Complete W Doppler/CF 09/10/2024 Orders Only [facility] [address] [place] [address] Scanning, Provider 09/10/2024 Telephone [facility] [address] [place] [address] [place] [address] Nicolas White MD Episode of Afib 09/08/2024 Orders Only [facility] [address] [place] [address] [place] [address] Nicolas White MD 08/08/2024 Orders Only [facility] [address] [place] [address] Nicolas White MD 07/31/2024 Orders Only [facility] Psychiatry [address] [facility] [address] [place] [phone] Pradeep Thomas MD Anxiety and depression 07/30/2024 Orders Only [facility] Medicine Psychiatry [address] [facility] [address] [place] [phone] Pradeep Thomas MD Anxiety and depression 07/30/2024 Telephone [facility] Psychiatry [address] [place] [address] Bianca Kay Jolene Needs call back from [...] 02/01/2023,11/24/2022 Surgical History Surgery Date Site/Laterality Comments AL UNLISTED PROCEDURE ABDOMEN PERITONEUM & OMENTUM Bilateral Hernia Repair - (Added by TW Conv) SINUS SURGERY Sinus Surgery - (Added by TW Conv) AL LAP,PROSTATECTOMY,RADICAL,W /NERVE SPARE,INCL ROBOTIC 02/07/2007 - 02/07/2008 Prostatect Retropubic Radical W/ Nerve Sparing Laparoscopic - robotic. Josefina 3+4, extraprostatic extension at Left base, (-) margins, [id number] (Added by TW Conv) GABRIEL FUNDOPLICATION 02/08/2016 [...] on file Legal Sex Male 6:01 PM SOCIAL MEDIA MARKETER Gender Identity Male 10/14/2020 8:55 PM CDT [...] 05/23/2024, 08/14/2015 Medical Devices Implanted Type Area Document Manager Device Identifier Shelf Expiration Date Model / [...] HEPATITIS C ANTIBODY Routine 12/13/2023 9:25 AM SOCIAL MEDIA MARKETER Need for hepatitis C screening test PSA, [...] AM CDT Narrative 09/13/2024 12:52 PM CDT [facility] Cardiology [address], [place] [address] [address] [facility] [address], [place] [address] P:[phone] P:[phone] Echocardiographic Report Patient Name: BRODY GARCIA J : 1960 Study Date: 09/13/2024 10:14:21 AM Gender: M Metal Finisher: Elana Romo)(CT), [facility] Location: [facility] Provider: NICOLAS WHITE Height(Cm): 175 [...] FINDINGS: Interpretation Site: Exam was interpreted at [facility]. Left Ventricle: Normal left ventricular systolic function. [...] Procedure Note Heath Chau MD - 09/13/2024 [facility] Cardiology [address] [facility] [address], [place] [address] [address] [facility] [id number], [place] [address] P:[phone] P:[phone] Echocardiographic Report Patient Name: BRODY GARCIA J : 1960 Study Date: 09/13/2024 10:14:21 AM Gender: M Metal Finisher: Elana Espana (Deepthi)(CT), [facility] Location: [facility] Provider: NICOLAS WHITE Height(Cm): 175 [...] FINDINGS: Interpretation Site: Exam was interpreted at [facility]. Left Ventricle: Normal left ventricular systolic function. [...] Male Attending MD: India Garcia M.D. Room: [facility] ENDOSCOPY ROOM 01 Note Status: Finalized Procedure: Colonoscopy Indications: Screening for colorectal malignant neoplasm, inadequate bowel prep on last colonoscopy(yesterday), Last adequate colonoscopy: 2015, Incidental changein bowel habits noted, bloating, IBS-C; h/o prostate radiation noted Providers: India Garcia M.D. Referring MD: Eugene Ozuna M.D. Medicines: Monitored Anesthesia Care Complications: [...] The scope was passed under direct vision.The [id number] was introduced through the anusand advanced to [...] your results within this timeframe, please call [phone] regarding your results. - Contact Information: During normal business hours - Please call theNurse Coordinator: [phone] After hours, evening, nights, weekends and holidays- Please call the hospital telephone operator at and ask for the GI fellow intervention teacher. - . Attending Participation: I personally performed the entire procedure. Electronically Signed By: India Garcia M.D. India Garcia M.D. 05/24/2024 10:17:57 AM Number of Addenda: 0 Note Initiated On: 05/24/2024 9:30 AM India Garcia MD ENDOSCOPY PROCEDURES Fin al Result * Hepatitis C antibody Blood (12/13/2023 9:25 AM SOCIAL MEDIA MARKETER) Pathologist [facility] Hep C Ab Nonreactive Nonreactive Comment:Antibodies to HCV no t detected. Does NOT exclude the possibility of recent exposure to HCV. Current interpretive data was last revised on 21 Blood 12/13/2023 9:25 AM SOCIAL MEDIA MARKETER 12/13/2023 9:37 AM SOCIAL MEDIA MARKETER Nicolas White MD LAB MICROBIOLOGY - GENERAL OR DERABLES Final Result [facility] [place] [address] * PSA, total and free (10/24/2023 9:34 AM CDT) Pathologist [facility] PSA 0.2 < OR = 4.0 ng/mL [facility] PSA, free <0.1 ng/mL [facility] PSA, free UNABLE TO CALCULATE >25 % (calc) [facility] Comment: The free PSA level is below [...] 30 93 9 (3)Jim et al.:[place] 277: 5564-5194 (1996) (4)Jim et al.:[place] 279: 1019-5717 (1998) (x)These estimates vary with age, ethnicity, [...] copy faxed has been acknowledged. Queued to: [id number] 10/24/2023 9:34 AM CDT 10/24/2023 9:35 AM CDT us Taj Yeung MD LAB BLOOD ORDERABLES F inal Result [facility] [address] [place] [address] * CT Abd/Pelvis with contrast (04/19/2022 2:33 [...] Most Recently Relevant to Health Maintenance Insurance [facility] MEDICARE [facility] MEDICARE Address: [facility] [id number] [place] [address] [facility] MEDICARE [employer] MEDICARE Advance Directives For more information, please contact: [phone] * Full Code (Latest Code Status on File) Date Activated Date Inactivated Comments 05/24/2024 7:47 AM 05/24/2024 2:53 PM * Full Code Date Activated Date Inactivated Comments 05/23/2024 9:49 AM 05/23/2024 4:47 PM * Full Code Date Activated Date Inactivated Comments 12/18/2018 9:19 PM 12/19/2018 8:00 PM Care Teams Allocations Clerk Relationship Specialty Start Date End Date Nicolas White MD PCP - General 03/22/16 Hayley Araya, COMMUNITY HEALTH NURSE STAFF Nurse Practitioner Radiation Oncology 09/28/17 Taj Yeung MD [address] [facility] [address] [place] [address] Radiation Oncologist Radiation Oncology 09/28/17
--- OUTSIDE RECORDS SUMMARY | 2024-10-20 23:46 | XMS_ITS | Encounter Summary ---
Author Organization [facility] Healthcare Address [address] [place] [address] Care Team Providers Care Hospital Wellness Coordinator Name Role Phone Nicolas Gayle MD Primary Care Provider [phone] Hayley Araya NP Unavailable [phone] Taj Yeung MD Unavailable [phone] Encounter Details Date Type Department Care Team (Late st Contact Info) Description 10/16/2024 Telephone [facility] Medical Group Cardiology [address] [place] [address] Foster Plasencia MD [address] [address] Social History Tobacco Use Types [...] on file Legal Sex Male 6:01 PM 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 Please Advise. Thank you. Contact : [phone] * Telephone Encounter - Hayley Hurtado RN [...] on filedocumented in this encounter Care Teams Hospital Wellness Coordinator Relationship Specialty Start Date End Date Nicolas Gayle MD PCP - General 03/22/16 Hayley Araya NP Nurse Practitioner Radiation Oncology 09/28/17 Taj Yeung MD [address] [facility] [address] [place] [address] Radiation Oncologist Radiation Oncology 09/28/17 documented as of this encounter
--- OUTSIDE RECORDS SUMMARY | 2024-10-20 23:46 | XMS_ITS | Clinical Summary ---
Author Organization [facility] Address [address] [facility] [place] [address] Care Team Providers Care Filling Machine Tender Name Role Phone Nicolas Gayle MD Primary Care Provider Source Comments [facility] Affiliates and Associated Physician Practices is amultiple site organization consisting of ambulatory clinics and hospital sitesin [place], [place], [place] and [place]. This disclosure is being madepursuant to the Care Everywhere program and may not contain all information available regarding this patient. Last updated 17.[facility] Allergies Active Allergy Reactions Criticality Noted Date [...] (FLONASE) 50 MCG/ACT nasal sprayIndication s:Allergic Rhinitis [place] 2 sprays into each nostril once daily [...] Comments Blood Pressure 140/80 01/15/2017 10:44 AM CHEMICAL RESEARCH ENGINEER Pulse 66 01/15/2017 10:44 AM CHEMICAL RESEARCH ENGINEER Temperature 36.9 C (98.4 F) 01/15/2017 10:44 AM CHEMICAL RESEARCH ENGINEER Respiratory Rate - - Oxygen Saturation 97% 01/15/2017 10:44 AM CHEMICAL RESEARCH ENGINEER Inhaled Oxygen Concentration - - Weight 77.1 kg (170 lb) 01/15/2017 10:44 AM CHEMICAL RESEARCH ENGINEER Height 175.3 cm (5' 9) 01/15/2017 10:44 AM CHEMICAL RESEARCH ENGINEER Body Mass Index 25.1 01/15/2017 10:44 AM CHEMICAL RESEARCH ENGINEER Plan of Treatment Health Maintenance Due Date [...] to complete this topic Insurance Care Teams Filling Machine Tender Relationship Specialty Start Date End Date Nicolas Gayle MD PCP - General Internal Medicine 11/08/15
--- OUTSIDE RECORDS SUMMARY | 2024-10-20 23:46 | XMS_ITS | Encounter Summary ---
Author Organization [facility] Address [address] [place] [address] Care Team Providers Care Hospital Nurse Name Role Phone Nicolas Gayle MD Primary Care Provider [phone] Hayley Araya NP Unavailable [phone] Taj Yeung MD Unavailable [phone] Encounter Details Date Type Department Care Team (Late st Contact Info) Description 10/19/2024 Telephone [facility] [address] [address] [facility] [address] [place] [address] Social History Tobacco Use Types [...] on file Legal Sex Male 6:01 PM SCALER Gender Identity Male 10/14/2020 8:55 PM CDT [...] filedocumented in this encounter Care Teams Hospital Nurse Relationship Specialty Start Date End Date Nicolas Gayle MD PCP - General 03/22/16 Hayley Araya NP Nurse Practitioner Radiation Oncology 09/28/17 Taj Yeung MD [address] [facility] [address] [place] [address] Radiation Oncologist Radiation Oncology 09/28/17 documented as of this encounter
--- OUTSIDE RECORDS SUMMARY | 2024-10-20 23:46 | XMS_ITS ---
Author Organization [facility] Address [address] [place] [address] Care Team Providers Care Office Manager Executive Assistant Name Role Phone Nicolas Gayle MD Primary Care Provider [phone] Hayley Araya NP Unavailable [phone] Taj Yeung MD Unavailable [phone] Active Problems Problem Noted Date Diagnosed Date [...] 12/13/2023 Assessment & Plan (12/13/2023 8:52 AM OFFICE SERVICES REPRESENTATIVE): Started medication in June, needs follow up to assess result, check lipid Pain of left hand 06/08/2023 Assessment & Plan (06/08/2023 8:50 AM CDT): Check xray, likely oa Dysfunction of both eustachian tubes 03/26/2021 Assessment & Plan (03/26/2021 1:46 PM OFFICE SERVICES REPRESENTATIVE): Flonase BID (use, s/e, technique reviewed) Thrush of mouth and esophagus 03/26/2021 Assessment & Plan (03/26/2021 1:53 PM OFFICE SERVICES REPRESENTATIVE): Fluconazole daily x 7d Warm salt water gargles Recurrent sinusitis 09/22/2020 HTN (hypertension) 12/18/2018 Assessment & Plan (06/12/2024 8:31 AM CDT): BP at target. Continue medication for target directed therapy Assessment & Plan (12/13/2023 8:50 AM OFFICE SERVICES REPRESENTATIVE): Bp at target, continue medication for target directed therapy Assessment & Plan (06/08/2023 8:50 AM CDT): Bp at target, continue medication for target directed therapy Assessment & Plan (03/07/2023 12:47 PM OFFICE SERVICES REPRESENTATIVE): Reassurance Quit home monitoring Continue current meds Assessment & Plan (03/02/2021 2:48 PM OFFICE SERVICES REPRESENTATIVE): BP today is normal. Check CMP. Assessment & Plan (12/19/2018 11:41 AM OFFICE SERVICES REPRESENTATIVE): Cont lisinopril and metoprolol XL. Blood pressure stable. Assessment & Plan (12/18/2018 10:26 PM OFFICE SERVICES REPRESENTATIVE): Cont lisinopril and metoprolol XL Anxiety and depression 12/18/2018 Assessment & Plan (06/12/2024 8:31 AM CDT): Per psychiatry. Medication recently increased. Assessment & Plan (12/13/2023 8:50 AM OFFICE SERVICES REPRESENTATIVE): To change psychiatrist soon Assessment & Plan (06/08/2023 8:50 AM CDT): Stable doing well Assessment & Plan (12/19/2018 11:41 AM OFFICE SERVICES REPRESENTATIVE): Cont clonazepam and mirtazapine. Mood currently stable. Assessment & Plan (12/18/2018 10:27 PM OFFICE SERVICES REPRESENTATIVE): Cont clonazepam and mirtazapine Gastroesophageal reflux disease [...] evaluations. Assessment & Plan (12/13/2023 8:50 AM OFFICE SERVICES REPRESENTATIVE): stable Assessment & Plan (06/08/2023 8:49 AM CDT): stable Assessment & Plan (12/19/2018 11:40 AM OFFICE SERVICES REPRESENTATIVE): - patient with recurrent GERD symptoms and abdominal distention. Currently protecting secretions. CT with finding of small hiatal hernia, no acute findings. -EGD completed, no acute findings, plan to follow up for further work up outpatient. -defer PPI for now, will GI f/u Assessment & Plan (12/18/2018 10:35 PM OFFICE SERVICES REPRESENTATIVE): - patient with recurrent GERD symptoms and [...] M0, G2) - Signed by Hayley Araya, POULTICE MACHINE OPERATOR on 09/28/2017 Assessment & Plan (12/13/2023 8:50 AM OFFICE SERVICES REPRESENTATIVE): onesimo [address] Assessment & Plan (06/08/2023 [...] 03/07/2023 Assessment & Plan (03/26/2021 1:49 PM OFFICE SERVICES REPRESENTATIVE): Bactrim DS BID Heat PRN
[2024-10-21 00:07] VITALS: O2SAT 98
[2024-10-21 00:15] VITALS: O2SAT 97
--- NOTE | 2024-10-21 00:19 | ED.ARRPALP ---
HPI - Arrhythmia/Palpitations General Chief Complaint: Arrhythmia/Palpitations Stated Complaint: stuck in afib for 2 hours Time Seen by Provider: 10/20/24 23:30 History of Present Illness HPI narrative: Patient is a 64-year-old male who presents emergency department this evening due to concern that he is in AFib. Patient was recently diagnosed with atrial fibrillation and started on a blood thinner, Xarelto. He is also on metoprolol for both AFib and his blood pressure but states that he has been on the metoprolol for all long time even before he was diagnosed with AFib, he was on it for hypertension. Patient follows up with [address] Plasencia. Otherwise denies any symptoms states that today he over-exerted himself and was spending a lot of time putting in a new toilet. Patient also states that he skipped lunch. States that his heart rate normally runs in the 60s and today it was persistently in the 80s which is unusual for him and prompted him to come to the ED for further evaluation. Related Data Home Medications ?Medication ?Instructions ?Recorded ?Confirmed ?Last Taken ?Type L.acidoph,paracasei,B.animalis 10 cell PO 09/18/20 09/28/24 Unknown History billion cell capsule (Digestive Advantage Advanced Probiotic) cetirizine 10 mg capsule (Zyrtec) 10 mg PO DAILY 09/18/20 09/28/24 Unknown History metoprolol succinate 50 mg 50 mg PO DAILY 09/18/20 09/28/24 Unknown History tablet,extended release 24 hr (Toprol XL) clonazepam 1 mg tablet 0.5 mg PO BID 07/23/24 09/28/24 Unknown History desvenlafaxine succinate 25 mg 25 mg PO DAILY 07/23/24 09/28/24 Unknown History tablet,extended release 24 hr fluticasone propionate 50 2 spray intranasal DAILY 07/23/24 09/28/24 Unknown History mcg/actuation nasal spray,suspension (Flonase Allergy Relief) linaclotide 145 mcg capsule 145 mcg PO DAILY 07/23/24 09/28/24 Unknown History (Linzess) lisinopril 20 mg tablet 10 mg PO DAILY 07/23/24 09/28/24 Unknown History mirtazapine 15 mg tablet (Remeron) 15 mg PO DAILY 07/23/24 09/28/24 Unknown History pantoprazole 40 mg tablet,delayed 40 mg PO BID 07/23/24 09/28/24 Unknown History release rosuvastatin 10 mg tablet 10 mg PO DAILY 07/23/24 09/28/24 Unknown History simethicone 250 mg capsule (Gas-X) 250 mg PO DAILY PRN 07/23/24 09/28/24 Unknown History Juan PO PRN 09/26/24 09/28/24 Unknown History Allergies Allergy/AdvReac Type Severity Reaction Status Date / Time Cephalosporins Allergy Unknown difficulty Verified 10/20/24 19:42 breathing ciprofloxacin Allergy Unknown body aches Verified 10/20/24 19:42 Penicillins Allergy Unknown Rash Verified 10/20/24 19:42 levofloxacin (From Levaquin) AdvReac difficulty Verified 10/20/24 19:42 breathing, swelling Review of Systems Review of Systems: All systems are reviewed and are negative unless stated otherwise in the HPI. [facility] Past Medical History Medical History Depression High blood pressure GERD (gastroesophageal reflux disease) Prostate cancer Surgical History Surgical History History of Terrie fundoplication History of dental surgery H/O eye surgery History of tonsillectomy H/O hemorrhoidectomy H/O bilateral inguinal hernia repair H/O prostatectomy Family History Family History Father Hypertension Leukemia Grandparent Diabetes mellitus Heart disease Cerebrovascular accident Social History Social History Years smoked: 10 Smoking status: Never smoker Alcohol intake: current Alcohol use details: socially Current Housing: Decline to Answer Concerned About Future Housing: Decline to Answer Difficulty Paying Gas/Electric Bills: Decline to Answer Difficulty Paying for Meds: Decline to Answer Currently Unemployed: Decline to Answer Education: Decline to Answer Difficulty w/ Childcare or Family Care: Decline to Answer Living arrangements: alone Occupation/Education: 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 HEENT: PERRL, no rhinorrhea, no post nasal drip, oropharynx clear. Neck: Trachea midline, no JVD, no lymphadenopathy. Cardiovascular: Regular rate and rhythm, no murmurs, rubs or gallops, no peripheral edema. Respiratory: Clear to auscultation bilaterally, no tachypnea, no wheezing, no rhonchi, no rubs, no respiratory distress. Abdomen: Soft, nontender, nondistended, no rebound, no guarding, no peritoneal signs. Musculoskeletal: No joint swelling or deformity, normal muscle tone. Skin: No rashes or petechia, no signs of infection. Psychiatric: Alert and oriented, normal behavior and judgment for situation. Neurological: Alert and oriented to person, place, and time. Follows all commands. No focal deficits, speech is clear and fluent. Course Vital Signs Vital signs: Vital Signs Temperature 98.7 F 10/20/24 19:39 Pulse Rate 89 10/20/24 19:39 Respiratory Rate 18 10/20/24 19:39 Blood Pressure 141/84 H 10/20/24 19:39 Pulse Oximetry 97 10/20/24 19:39 Oxygen Delivery Room Air 10/20/24 19:39 Temperature 98.7 F 10/20/24 19:39 Pulse Rate 89 10/20/24 19:39 Respiratory Rate 18 10/20/24 19:39 Blood Pressure 141/84 H 10/20/24 19:39 Pulse Oximetry 97 10/20/24 19:39 Oxygen Delivery Room Air 10/20/24 19:39 MDM - Arrhythmia/Palpitations MDM Narrative Medical decision making narrative: The patient was evaluated by myself in the emergency department. History is obtained from patient who is an independent historian and physical exam was performed. External medical records were reviewed at this time. IV was established and pertinent tests were ordered. EKG was obtained which revealed sinus rhythm at a rate of 93 beats per Min. No ST changes, T wave inversions or evidence of acute ischemia. EKG was independently interpreted by me and is currently pending official cardiology read. Laboratory results obtained revealing no acute process. Troponin negative. Imaging studies obtained included CXR which was independently interpreted by me revealing no acute process, which is pending final radiology interpretation. Differential diagnosis considerations include dehydration, electrolyte derangements, acute viral syndrome, anxiety, acute stress reaction. Comorbidities impacting this visit include recent diagnosis of atrial fibrillation. I have evaluated and discussed social determinants of health with the patient that could potentially impact subsequent diagnosis and treatment plans. On repeat assessment of the patient, reevaluation revealed that the patient is doing well and is in no acute distress. Patient symptoms have improved since he arrived to our emergency department. Repeat vital signs were all reviewed and noted to be stable. Differential diagnosis and treatment plan were discussed with the patient at bedside. Patient agrees with discussion and after shared medical decision making agrees with discharge. All questions were answered to the patient's satisfaction. Patient will follow up with his PCP/fabric normalizer in 3-5 days. Patient was provided with strict return precautions and instructed to return to the emergency department if any new or worsening symptoms develop. The patient was discharged in stable condition. Lab Data 10/20/24 21:43 10/20/24 21:43 Labs: Lab Results 10/20/24 Range/Units 21:43 WBC 6.5 (4.5-10.0) K/mm3 RBC 4.33 L (4.6-6.20) M/mm3 Hgb 13.2 L (14.0-18.0) g/dL Hct 37.5 L (42.0-52.0) % MCV 86.6 (80-100) fl MCH 30.5 (26-34) pg MCHC 35.2 (32-36) g/dl RDW 11.9 (11.5-14.5) % Plt Count 155 (150-375) k/mm3 MPV 9.4 (7.4-10.4) fl Immature Gran % (Auto) 0.6 H (0-0.5) % Neut % (Auto) 71.0 (45.5-73.1) % Lymph % (Auto) 15.2 L (18.3-44.2) % [place] % (Auto) 10.1 H (2.6-8.5) % Eos % (Auto) 2.3 (0-4.4) % Baso % (Auto) 0.8 (0.2-1.2) % Lymph # (Auto) 0.99 (0.9-3.2) K/mm3 [place] # (Auto) 0.7 H (0.1-0.6) K/mm3 Eos # (Auto) 0.2 (0-0.3) K/mm3 Baso # (Auto) 0.1 (0.0-0.1) K/mm3 Abs Immat Gran (auto) 0.04 H (0.00-0.031) K/mm3 Absolute Neuts (auto) 4.6 (1.3-6.7) K/mm3 Absolute Nucleated RBC 0.000 (0.0-0.012) K/mm3 Nucleated RBC % 0.0 (0.0-0.2) % PT 24.1 H (11.1-14.7) Seconds INR 2.2 APTT 45.2 H (22.3-36.8) Seconds Sodium 139 (137-145) mmol/L Potassium 4.1 (3.4-5.0) mmol/L Chloride 103 (98-107) mmol/L Carbon Dioxide 25 (22-30) mmol/L Anion Gap 11 (4-12) mmol/L BUN 19 (9-20) mg/dL Creatinine 1.05 (0.7-1.3) mg/dL Estim Creat Clear Calc 61 ml/min Estimated GFR > 60 (59 - ) Glucose 95 (65-110) mg/dL Calcium 9.2 (8.4-10.2) mg/dL Total Bilirubin 0.6 (0.2-1.3) mg/dL AST 42 (17-59) U/L ALT 29 (6-50) U/L Alkaline Phosphatase 85 (38-126) U/L Troponin I < 0.012 (0.000-0.034) ng/mL Total Protein 7.6 (6.3-8.2) g/dL Albumin 4.6 (3.5-5.1) g/dL Lipase 138 (23-300) U/L Discharge Plan Discharge Clinical Impression: Palpitations Patient Disposition: Home Condition: Improved Instructions: Antibiotic Form Additional Instructions: Please follow-up with your primary care physician/fabric normalizer within the next 3-5 days. Return to ED if any new or worsening symptoms develop. Patient Language: Armenian Prescriptions: No Action pantoprazole 40 mg tablet,delayed release (DR/EC) 40 mg PO BID Juan PO PRN metoprolol succinate [Toprol XL] 50 mg tablet extended release 24 hr 50 mg PO DAILY Digestive Advantage Advanced 10 billion cell capsule PO Zyrtec 10 mg capsule 10 mg PO DAILY clonazepam 1 mg tablet 0.5 mg PO BID Rx Instructions: 1mg at night and .5mg in the morning lisinopril 20 mg tablet 10 mg PO DAILY mirtazapine [Remeron] 15 mg tablet 15 mg PO DAILY Rx Instructions: 15mg in the Morning and 30mg at bedtime desvenlafaxine succinate 25 mg tablet extended release 24 hr 25 mg PO DAILY rosuvastatin 10 mg tablet 10 mg PO DAILY fluticasone propionate [Flonase Allergy Relief] 50 mcg/actuation spray,suspension 2 spray intranasal DAILY Rx Instructions: administer into each nostril Gas-X 250 mg capsule 250 mg PO DAILY PRN Linzess 145 mcg capsule 145 mcg PO DAILY Follow-up/Referrals: Nalini,Nicolas Mullen MD [Primary Care Provider] - 3 Days Time of Disposition: 00:19
[2024-10-21 00:30] VITALS: O2SAT 98
[2024-10-21 00:37] VITALS: BP 147/94; PULSE 76; RESP 16; O2SAT 98
== END 2024-10-21 00:52 | disposition home or self-care (01) ==
PROVIDERS: Emergency Provider Emergency Medicine; PCP Internal Medicine
DX: R00.2 Palpitations (principal); I48.91 Unspecified atrial fibrillation; I10 Essential (primary) hypertension; Z85.46 Personal history of malignant neoplasm of prostate; Z79.01 Long term (current) use of anticoagulants
CPT/HCPCS: 36415; 71046; 80053; 83690; 84484; 85025; 85610; 85730; 93005; 99284